=== PATIENT | female | born 1950 | race Caucasian/White ===

== ENCOUNTER 2017-03-17 17:53 | Emergency (ER) | payer SELFPAY ==
[2017-03-17 19:19] LABS: ABSOLUTE BASOPHILS # (AUTO) 0.1 10^3/uL (0.0-0.2); ABSOLUTE EOSINOPHILS # (AUTO) 0.2 10^3/uL (0.0-0.6); ABSOLUTE LYMPHOCYTES (AUTO) 3.1 10^3/uL (0.5-4.7); ABSOLUTE MONOCYTES (AUTO) 0.3 10^3/uL (0.1-1.4); ABSOLUTE NEUT (AUTO) 3.7 10^3/uL (1.7-8.2); BASOPHILS % (AUTO) 0.9 % (0-2); EOSINOPHILS % (AUTO) 2.8 % (0-6); HEMATOCRIT 43.2 % (36.0-47.0); HEMOGLOBIN 15.1 g/dL (12.0-15.5); HGB HCT DIFFERENCE 2.1; LYMPHOCYTES % (AUTO) 41.7 % (13-45); MEAN CORPUSCULAR HEMOGLOBIN 30.5 pg (27.0-33.4); MEAN CORPUSCULAR HGB CONC 34.8 g/dL (32.0-36.0); MEAN CORPUSCULAR VOLUME 88 fl (80-97); MONOCYTES % (AUTO) 4.4 % (3-13); RED BLOOD COUNT 4.94 10^6/uL (3.72-5.28); SEGMENTED NEUTROPHILS % (AUTO) 50.2 % (42-78); WHITE BLOOD COUNT 7.3 10^3/uL (4.0-10.5)
[2017-03-17 19:22] LABS: ALANINE AMINOTRANSFERASE 33 U/L (9-52); ALBUMIN 4.3 g/dL (3.5-5.0); ALKALINE PHOSPHATASE 163 U/L (38-126); ANION GAP 13 (5-19); ASPARTATE AMINO TRANSFERASE 22 U/L (14-36); BILIRUBIN,DIRECT 0.4 mg/dL (0.0-0.4); BILIRUBIN,TOTAL 0.4 mg/dL (0.2-1.3); BLOOD UREA NITROGEN 15 mg/dL (7-20); CALCIUM 9.4 mg/dL (8.4-10.2); CARBON DIOXIDE 27 mmol/L (22-30); CHLORIDE 100 mmol/L (98-107); CREATININE RESULT 0.61 mg/dL (0.52-1.25); GLUCOSE 342 mg/dL (75-110); POTASSIUM 4.3 mmol/L (3.6-5.0); SODIUM 139.5 mmol/L (137-145)
[2017-03-17] MEDS ORDERED: NORMAL SALINE 1000 ML 1,000 ML IV PRN (19:56)
--- NOTE | 2017-03-17 19:56 | ER Document Report ---
ED General - General Chief Complaint: Dizziness Stated Complaint: BLOOD SUGAR PROBLEM Time Seen by Provider: 03/17/17 19:42 Mode of Arrival: Ambulatory Information source: Patient TRAVEL OUTSIDE OF THE [place] IN LAST 30 DAYS: No - HPI Patient complains to provider of: Blood sugar, feeling off balance, increased thirst and urination Onset: Just prior to arrival Onset/Duration: Gradual Quality of pain: No pain Exacerbated by: Denies Relieved by: Denies Similar symptoms previously: No Recently seen / treated by doctor: No Notes: She is a 66-year-old female who presents to the emergency room today via EMS for elevated blood sugar, she states that she is felt as though her equilibrium was off over the last few days, she fell in the bathtub today hitting her head, there was no loss of consciousness, no nausea or vomiting, she does report increased thirst and urination, her sister used her glucometer to take patient' s blood sugar and it was over 400, patient has not seen a doctor since she was about 17 years old - Related Data Allergies/Adverse Reactions: No Known Allergies Allergy (Unverified 03/17/17 18:49) Past Medical History - General Information source: Patient - Social History Smoking Status: Never Smoker Chew tobacco use (# tins/day): No Frequency of alcohol use: None Drug Abuse: None Family History: Reviewed & Not Pertinent Patient has suicidal ideation: No Patient has homicidal ideation: No Renal/ Medical History: Denies: Hx Peritoneal Dialysis Surgical Hx: Negative - Immunizations Hx Diphtheria, Pertussis, Tetanus Vaccination: No Review of Systems - Review of Systems Constitutional: No symptoms reported EENT: No symptoms reported Cardiovascular: Dizziness Respiratory: No symptoms reported Gastrointestinal: No symptoms reported Genitourinary: See HPI Female Genitourinary: No symptoms reported Musculoskeletal: No symptoms reported Skin: No symptoms reported Hematologic/Lymphatic: No symptoms reported Neurological/Psychological: No symptoms reported -: Yes All other systems reviewed and negative Physical Exam - Vital signs Vitals: Temp Resp BP Pulse Ox 98.6 F 22 H 166/94 H 96 03/17/17 18:43 03/17/17 18:43 03/17/17 18:43 03/17/17 18:43 Interpretation: Hypertensive - General General appearance: Appears well, Alert - HEENT Head: Normocephalic, Atraumatic Eyes: Normal Pupils: PERRL - Respiratory Respiratory status: No respiratory distress Chest status: Nontender Breath sounds: Normal Chest palpation: Normal - Cardiovascular Rhythm: Regular Heart sounds: Normal auscultation Murmur: No - Abdominal Inspection: Normal Distension: No distension Bowel sounds: Normal Tenderness: Nontender Organomegaly: No organomegaly - Back Back: Normal, Nontender - Extremities General upper extremity: Normal inspection, Nontender, Normal color, Normal ROM , Normal temperature General lower extremity: Normal inspection, Nontender, Normal color, Normal ROM , Normal temperature, Normal weight bearing. No: Inocencia's sign - Neurological Neuro grossly intact: Yes Cognition: Normal Orientation: AAOx4 Griselda Coma Scale Eye Opening: Spontaneous Griselda Coma Scale Verbal: Oriented Griselda Coma Scale Motor: Obeys Commands Griselda Coma Scale Total: 15 Speech: Normal Motor strength normal: LUE, RUE, LLE, RLE Sensory: Normal - Psychological Associated symptoms: Normal affect, Normal mood - Skin Skin Temperature: Warm Skin Moisture: Dry Skin Color: Normal Course - Re-evaluation Re-evalutation: 03/17/17 19:53 Vision was high blood pressure and high blood sugar, restarted on metformin and Norvasc, and provided with information to follow-up with a primary care provider , advised to return if symptoms worsen, patient acknowledges understanding and agreement with this plan - Vital Signs Vital signs: Temp Pulse Resp BP Pulse Ox 98.6 F 22 H 166/94 H 96 03/17/17 18:43 03/17/17 18:43 03/17/17 18:43 03/17/17 18:43 - Laboratory Result Diagrams: 03/17/17 18:30 03/17/17 18:30 Laboratory results interpreted by me: 03/17/17 18:30 Glucose 342 H Alkaline Phosphatase 163 H Discharge - Discharge Clinical Impression: Hyperglycemia Hypertension Qualifiers: Hypertension type: essential hypertension Qualified Code(s): I10 - Essential ( primary) hypertension Condition: Stable Disposition: HOME, SELF-CARE Instructions: Dizziness ([facility]), Hyperglycemia ([facility]), High Blood Pressure, Requiring Treatment ([facility]), Diabetes ([facility]), Control of Diabetes During Illness ( [facility]) Additional Instructions: Follow up with your primary care provider in one to 2 days. Return to the emergency room immediately if symptoms worsen or any additional concerns. Prescriptions: Amlodipine Besylate [Norvasc 5 mg Tablet] 5 mg PO DAILY #30 tablet Metformin HCl [Glucophage 500 mg Tablet] 500 mg PO BIDACBS #60 tab
[2017-03-17] MEDS ORDERED: DIPH/PERTUSS(ACELL)/TETANUS VAC/PF 0.5 ML SYR (>=10YO) IM ONE (19:57)
[2017-03-17 20:18] VITALS: BP 167/87
== END 2017-03-17 20:54 | disposition home or self-care (01) ==
LOC: ER 17:53
DX: R73.9 Hyperglycemia, unspecified (principal); I10 Essential (primary) hypertension; R42 Dizziness and giddiness
CPT/HCPCS: 99285; 96360; 36415; 85025; 80053; J7030

== ENCOUNTER 2017-04-20 08:51 | Inpatient (IN) | payer MEDICARE ==
--- NOTE | 2017-04-20 09:09 | RADIOLOGY REPORT (SQ) ---
EXAM DESCRIPTION: CT HEAD WITHOUT COMPLETED DATE/TIME: 04/20/2017 8:58 am REASON FOR STUDY: bed 12 stroke alert COMPARISON: None. TECHNIQUE: Axial images acquired through the brain without intravenous contrast. Images reviewed wi th bone, brain and subdural windows. Images stored on PACS. All CT scanners at this facility use dose modulation, iterative reconstruction, and/or weight based d osing when appropriate to reduce radiation dose to as low as reasonably achievable (ALARA). [facility]: Dose Right [facility]: CareDose [facility]: Dose Right [facility]: Teradose 4D [facility]: [employer] RADIATION DOSE: CT Rad equipment meets quality standard of care and radiation dose reduction techniq ues were employed. CTDIvol: 64.6 mGy. DLP: 1163 mGy-cm. mGy. LIMITATIONS: None. FINDINGS: VENTRICLES: Normal size and contour. CEREBRUM: No masses. No hemorrhage. No midline shift. No evidence for acute infarction. Moderate t o marked bilateral patchy areas of bilateral hypodensity in the white matter. Right centrum semioval e old lacunar infarct. CEREBELLUM: No masses. No hemorrhage. No alteration of density. No evidence for acute infarction. EXTRAAXIAL SPACES: No fluid collections. No masses. ORBITS AND GLOBE: No intra- or extraconal masses. Normal contour of globe without masses. CALVARIUM: No fracture. PARANASAL SINUSES: No fluid or mucosal thickening. SOFT TISSUES: No mass or hematoma. OTHER: No other significant finding. IMPRESSION: 1. Fairly pronounced small vessel vasculopathy, likely chronic ischemic disease. No acu te infarct or hemorrhage suggested. Pertinent positive or negative findings of the imaging study reported as a CRITICAL EXAM to GAUDENCIO LEON DO at08:05 on 04/20/2017. Category of Critical Exam: Stroke alert EVIDENCE OF ACUTE STROKE: NO. COMMENT: Quality ID # [id number]: Final reports with documentation of one or more dose reduction techniques (e.g., Automated exposure control, adjustment of the mA and/or kV according to patient size, use of iterative reconstruction technique) TECHNICAL DOCUMENTATION: JOB ID: [id number]- All Rights Reserved
[2017-04-20 09:17] LABS: ABSOLUTE BASOPHILS # (AUTO) 0.1 10^3/uL (0.0-0.2); ABSOLUTE EOSINOPHILS # (AUTO) 0.2 10^3/uL (0.0-0.6); ABSOLUTE LYMPHOCYTES (AUTO) 2.6 10^3/uL (0.5-4.7); ABSOLUTE MONOCYTES (AUTO) 0.3 10^3/uL (0.1-1.4); ABSOLUTE NEUT (AUTO) 4.9 10^3/uL (1.7-8.2); BASOPHILS % (AUTO) 1.2 % (0-2); EOSINOPHILS % (AUTO) 2.6 % (0-6); HEMATOCRIT 41.4 % (36.0-47.0); HEMOGLOBIN 14.5 g/dL (12.0-15.5); HGB HCT DIFFERENCE 2.1; LYMPHOCYTES % (AUTO) 32.5 % (13-45); MEAN CORPUSCULAR HEMOGLOBIN 30.6 pg (27.0-33.4); MEAN CORPUSCULAR HGB CONC 34.9 g/dL (32.0-36.0); MEAN CORPUSCULAR VOLUME 88 fl (80-97); RED BLOOD COUNT 4.73 10^6/uL (3.72-5.28); SEGMENTED NEUTROPHILS % (AUTO) 59.7 % (42-78); WHITE BLOOD COUNT 8.1 10^3/uL (4.0-10.5)
[2017-04-20 09:25] LABS: PARTIAL THROMBOPLASTIN TIME 26.4 SEC (23.5-35.8); PROTHROMBIN TIME 12.5 SEC (11.4-15.4)
--- NOTE | 2017-04-20 09:26 | RADIOLOGY REPORT (SQ) ---
EXAM DESCRIPTION: CHEST SINGLE VIEW COMPLETED DATE/TIME: 04/20/2017 9:06 am REASON FOR STUDY: bed 12 stroke alert COMPARISON: None. NUMBER OF VIEWS: One view. TECHNIQUE: Single frontal radiographic view of the chest acquired. LIMITATIONS: None. FINDINGS: LUNGS AND PLEURA: Low lung volumes. No opacities, masses or pneumothorax. No pleural eff usion. MEDIASTINUM AND HILAR STRUCTURES: No masses. No contour abnormality. HEART AND VASCULAR STRUCTURES: Normal size. No evidence for failure. BONES: No acute findings. HARDWARE: None in the chest. OTHER: No other significant finding. IMPRESSION: LOW LUNG VOLUMES. NO SIGNIFICANT RADIOGRAPHIC FINDING IN THE CHEST. TECHNICAL DOCUMENTATION: JOB ID: [id number] [employer]- All Rights Reserved
--- NOTE | 2017-04-20 09:30 | ER Document Report ---
ED General - General Stated Complaint: POSSIBLE STROKE Time Seen by Provider: 04/20/17 08:58 TRAVEL OUTSIDE OF THE [place] IN LAST 30 DAYS: No - HPI Patient complains to provider of: Possible stroke Notes: Patient coming in for strokelike symptoms. Patient at bedside states that the patient was at home at around 813 started having repetitive speech and expressive aphasia and drooping of her face. Patient otherwise at this time has no complaints patient is speaking normal voice patient otherwise states she feels fine. Patient was recently seen diagnosed with diabetes. Patient denies any past medical history states that she is only on metformin has not established herself with PCP Dr. Smith however has not had the first visit yet. Patient upon my evaluation is in no distress patient has no complaints denies headaches fevers chills nausea vomiting chest pain abdominal pain. - Related Data Allergies/Adverse Reactions: No Known Allergies Allergy (Verified 04/20/17 09:36) Past Medical History - Social History Smoking Status: Unknown if Ever Smoked Family History: Reviewed & Not Pertinent Renal/ Medical History: Denies: Hx Peritoneal Dialysis - Immunizations Hx Diphtheria, Pertussis, Tetanus Vaccination: No Review of Systems - Review of Systems Constitutional: No symptoms reported EENT: No symptoms reported Cardiovascular: No symptoms reported Respiratory: No symptoms reported Gastrointestinal: No symptoms reported Genitourinary: No symptoms reported Female Genitourinary: No symptoms reported Musculoskeletal: No symptoms reported Skin: No symptoms reported Hematologic/Lymphatic: No symptoms reported Neurological/Psychological: Speech impairment, Other - Facial drooping -: Yes All other systems reviewed and negative Physical Exam - Vital signs Vitals: Pulse Resp BP Pulse Ox 83 17 163/88 H 99 04/20/17 08:58 04/20/17 08:58 04/20/17 08:58 04/20/17 08:58 Interpretation: Normal - General General appearance: Appears well, Alert - HEENT Head: Normocephalic, Atraumatic Eyes: Normal Pupils: PERRL - Respiratory Respiratory status: No respiratory distress Chest status: Nontender Breath sounds: Normal Chest palpation: Normal - Cardiovascular Rhythm: Regular Heart sounds: Normal auscultation Murmur: No - Abdominal Inspection: Normal Distension: No distension Bowel sounds: Normal Tenderness: Nontender Organomegaly: No organomegaly - Back Back: Normal, Nontender - Extremities General upper extremity: Normal inspection, Nontender, Normal color, Normal ROM , Normal temperature General lower extremity: Normal inspection, Nontender, Normal color, Normal ROM , Normal temperature, Normal weight bearing. No: Inocencia's sign - Neurological Neuro grossly intact: Yes Cognition: Normal Orientation: AAOx4 Griselda Coma Scale Eye Opening: Spontaneous [place] Coma Scale Verbal: Oriented Griselda Coma Scale Motor: Obeys Commands [place] Coma Scale Total: 15 Speech: Normal Motor strength normal: LUE, RUE, LLE, RLE Sensory: Normal Notes: He can refer to the NIH scale for further evaluation - Psychological Associated symptoms: Normal affect, Normal mood - Skin Skin Temperature: Warm Skin Moisture: Dry Skin Color: Normal Course - Re-evaluation Re-evalutation: 04/20/17 09:22 Patient presented with confusion repeating her words however upon my evaluation this had resolved. NIH score was 0. No unilateral weakness. Concern for underlying TIA. CT of the head does not show evolving pathology or bleeding. Discussed with the patient about getting thrombolytics is that the patient would not be a candidate for thrombolytics at this time. Patient states understanding. 04/20/17 11:10 - Vital Signs Vital signs: Temp Pulse Resp BP Pulse Ox 84 20 165/90 H 97 04/20/17 12:00 04/20/17 13:01 04/20/17 13:01 04/20/17 14:18 - Laboratory Result Diagrams: 04/20/17 09:07 04/20/17 09:07 Laboratory results interpreted by me: 04/20/17 04/20/17 04/20/17 09:07 09:11 10:00 Glucose 202 H POC Glucose 222 H Creatine Kinase 24 L Urine Glucose (UA) >=500 H Urine Nitrite POSITIVE H Ur Leukocyte Esterase TRACE H Urine Ascorbic Acid 20 H Discharge - Discharge Clinical Impression: facial weakness resolved TIA (transient ischemic attack) Qualifiers: Transient cerebral ischemia type: other Qualified Code(s): G45.8 - Other transient cerebral ischemic attacks and related syndromes UTI (urinary tract infection) Qualifiers: Hematuria presence: without hematuria DMII (diabetes mellitus, type 2) Qualifiers: Diabetes mellitus complication status: with unspecified complications Condition: Good Disposition: ADMITTED OBSERVATION Admitting Provider: Hospitalist - [facility] Admitted: Telemetry ED NIH Stroke Scale - NIH Stroke Scale *: 1. NIH scale should be completed with appropriate accompanying assessment tools. *: 2. The NIH should reflect what the patient is capable of doing and should not be coached by the clinician. 1a. Level of Consciousness: 0=Alert;keenly responsive -: 1=Drowsy -: 2=Obtunded -: 3=Coma/unresponsive or reflex to noxious stimuli. 1a. Responses: 0 1b. Orientation Questions: a. What month is it? -: b. How old are you? -: 0=Answers both questions correctly. -: 1=Answers one question correctly or patient is intubated or has orotracheal trauma. -: 2=Answers neither question correctly. 1b. Responses: 0 1c. Response to commands: a. Open and close eyes? -: b. Humane Officer and release hand? -: Credit is given despite weakness. Demonstration of task is permitted. Substitute command if hands cannot be used. -: 0=Performs both tasks correctly -: 1=Performs one task correctly -: 2=Performs neither task correctly 1c. Responses: 0 2. Gaze: Establish eye contact and instruct patient to "Follow my finger" -: 0=Normal -: 1=Partial gaze palsy. Gaze is abnormal in one or both eyes, but where forced deviation or total gaze paresis is not present. -: 2=Forced deviation or total gaze paresis. 2. Responses: 0 3. Visual Reyes: Sees fingers in all four quadrants. -: 0=No visual loss. -: 1=Partial hemianopsia. -: 2=Complete hemianopsia. -: 3=Bilateral hemianopsia (including Cortical blindness) 3. Responses: 0 4. Facial Movement: Instruct patient to: -: a. Show me your teeth -: b. Raise your eyebrows -: c. Close your eyes -: d. Smile -: 0=Normal symmetrical movement -: 1=Minor paralysis (flattened nasolabial fold, asymmetry on smiling). -: 2=Partial paralysis (total or near total paralysis of lower face). -: 3=Complete paralysis of upper and lower face 4. Responses: 0 5. Motor functions (left arm): Alternate sides and extend each arm with palms down (90 degrees if sitting or 45 degrees for supine). -: 0=No drift;limb holds for full 10 seconds. -: 1=Drift; limb holds but drifts down before full 10 seconds, but does not hit bed. -: 2=Some effort against gravity; limb cannot get to or maintain position. -: 3=No effort against gravity; limb falls. -: 4=No movement. -: UN=Amputation, joint fusion, explain in comments. 5. Responses (left arm): 0 5. Motor Functions (right arm): Alternate sides and extend each arm with palms down (90 degrees if sitting or 45 degrees for supine). -: 0=No drift;limb holds for full 10 seconds. -: 1=Drift; limb holds but drifts down before full 10 seconds, but does not hit bed. -: 2=Some effort against gravity; limb cannot get to or maintain position. -: 3=No effort against gravity; limb falls. -: 4=No movement. -: UN=Amputation, joint fusion, explain in comments. 5. Responses (right arm): 0 6. Motor Functions (left leg): With patient lying supine, alternate sides and extend each leg (30 degrees always while supine). -: 0=No drift, leg holds position for full 5 seconds -: 1=Drift; leg falls before full 5 seconds but does not hit bed. -: 2=Some effort against gravity, leg falls to bed but some effort against gravity. -: 3=No effort against gravity, leg falls to bed immediately. -: 4=No movement. -: UN=Amputation, joint fusion; explain in comments. 6. Responses (left leg): 0 6. Motor Functions (right leg): With patient lying supine, alternate sides and extend each leg (30 degrees always while supine). -: 0=No drift, leg holds position for full 5 seconds -: 1=Drift; leg falls before full 5 seconds but does not hit bed. -: 2=Some effort against gravity, leg falls to bed but some effort against gravity. -: 3=No effort against gravity, leg falls to bed immediately. -: 4=No movement. -: UN=Amputation, joint fusion; explain in comments. 6. Responses (right leg): 0 7. Limb Ataxia: With eyes open instruct patient to: -: a. "Touch your finger to your nose". -: b. "Touch your heel to your mejía" -: 0=Absent -: 1=Present in one limb. -: 2=Present in two limbs. -: UN=Amputation or joint fusion; explain in comments. 7. Responses: 0 8. Sensory: Test sensation using pinprick or noxious stimuli. Test as many body parts as possible. -: 0=Normal;no sensory loss -: 1=Mile to moderate sensory loss (patient feels pin prick but is less sharp on affected side). -: 2=Severe or total sensory loss. 8. Responses: 0 9. Best Language: Instruct patient to: -: a. "Describe what you see in this picture." -: b. "Name the items in this picture." -: c. "Read these sentences." -: 0=No aphasia, normal -: 1=Mild to moderate aphasia. -: 2=Severe aphasia -: 3=Mute, global aphasia, no usable speech or auditory comprehension. 9. Responses: 0 10. Articulation, Dysarthia: Instruct patient to: -: "Read these words" or "Repeat these words" -: 0=Normal -: 1=Mild to moderate; patient may slur some words but can be understood without difficulty. -: 2=Severe; patients speech so slurred as to be unintelligible in the absence of dysphasia. -: UN=Intubated or other physical barrier, explain in comments. 10. Responses: 0 11. Extinction or inattention: 0=No abnormality -: 1= Visual, tactile, auditory, spatial, or personal inattention or extinction to bilateral simulation in one or the sensory modalities. -: 2=Profound som-inattention or som-inattention to more than one modality; does not recognize own hand. 11. Responses: 0 Total Score: 0
[2017-04-20 09:32] LABS: ALANINE AMINOTRANSFERASE 33 U/L (9-52); ALBUMIN 4.4 g/dL (3.5-5.0); ALKALINE PHOSPHATASE 98 U/L (38-126); ANION GAP 13 (5-19); ASPARTATE AMINO TRANSFERASE 22 U/L (14-36); BILIRUBIN,DIRECT 0.2 mg/dL (0.0-0.4); BILIRUBIN,TOTAL 0.5 mg/dL (0.2-1.3); BLOOD UREA NITROGEN 14 mg/dL (7-20); CALCIUM 9.7 mg/dL (8.4-10.2); CARBON DIOXIDE 29 mmol/L (22-30); CHLORIDE 100 mmol/L (98-107); GLUCOSE 202 mg/dL (75-110); POTASSIUM 4.4 mmol/L (3.6-5.0); SODIUM 142.3 mmol/L (137-145); TOTAL PROTEIN 7.4 g/dL (6.3-8.2)
[2017-04-20 09:33] LABS: CREATINE KINASE 24 U/L (30-135)
[2017-04-20 09:44] LABS: CREATINE KINASE MB 0.58 ng/mL (<4.55)
[2017-04-20 09:45] LABS: TROPONIN I < 0.012 ng/mL
[2017-04-20 10:25] LABS: APPEARANCE,URINE SLIGHTLY-CLOUDY; BILIRUBIN,URINE NEGATIVE (NEGATIVE); GLUCOSE, URINE >=500 mg/dL (NEGATIVE); KETONES,URINE NEGATIVE (NEGATIVE); LEUKOCYTE ESTERASE,URINE TRACE (NEGATIVE); NITRITE,URINE POSITIVE (NEGATIVE); PROTEIN,URINE NEGATIVE (NEGATIVE); URINE SPECIFIC GRAVITY 1.016; UROBILINOGEN,URINE NEGATIVE mg/dL (<2.0)
[2017-04-20 10:46] LABS: URINE BARBITURATES SCREEN NEGATIVE; URINE METHADONE SCREEN NEGATIVE; URINE OPIATES LOW NEGATIVE; URINE PHENCYCLIDINE SCREEN NEGATIVE
[2017-04-20] MEDS ORDERED: CEFTRIAXONE 1 GM/D5W RTU 1 GM/50 ML RTUPB IV ONE (10:48)
[2017-04-20] MEDS ORDERED: DEXTROSE 50%-WATER 25 GM/50 ML DISP.SYRIN IV PRN ×4 (12:28→12:46)
[2017-04-20] MEDS ORDERED: ACETAMINOPHEN 325 MG TABLET PO PRN (12:28)
[2017-04-20] MEDS ORDERED: MAGNESIUM HYDROXIDE SUSP 30 ML UDCUP PO PRN (12:28)
[2017-04-20] MEDS ORDERED: DOCUSATE SODIUM 100 MG CAPSULE PO PRN (12:28)
[2017-04-20] MEDS ORDERED: DEXTROSE 40% GEL 15 GM TUBE PO PRN ×2 (12:28)
[2017-04-20] MEDS ORDERED: GLUCAGON,HUMAN RECOMB 1 MG INJ SUBCUT PRN (12:28)
[2017-04-20] MEDS ORDERED: NORMAL SALINE 1000 ML 1,000 ML IV PRN (12:28)
[2017-04-20] MEDS ORDERED: DILTIAZEM HCL INJ 25 MG/5 ML VIAL IV ONE (15:20)
--- NOTE | 2017-04-20 15:28 | RADIOLOGY REPORT (SQ) ---
EXAM DESCRIPTION: MRI HEAD WITHOUT COMPLETED DATE/TIME: 04/20/2017 2:05 pm REASON FOR STUDY: r/o cva COMPARISON: 04/20/2017 CT. This exam qualifies as a separate session for this patient's imaging care and occurred approximately 6 hours after the previous session of cross-sectional imaging care. TECHNIQUE: Multiplanar imaging includes non-contrasted T1, T2, FLAIR, and diffusion with ADC map seq uences. Images stored on PACS. LIMITATIONS: None. FINDINGS: ANATOMY: No anomalies. Normal vascular flow voids. Pituitary fossa normal. CSF SPACES: Normal in size and contour. No hemorrhage. CEREBRUM: Marked multifocal FLAIR hyperintensities with patchy bilateral diffuse distribution. Likel y small vessel vasculopathy. Somewhat pronounced for a patient of this age. Likely chronic small ve ssel ischemic change. No evidence of hemorrhage or mass or shift. POSTERIOR FOSSA: No signal alteration. No hemorrhage. No edema, masses or mass effect. Internal rika tory canals, cerebello-pontine angles, mastoids normal. DIFFUSION IMAGING: Minimal punctate restricted diffusion may be present along the left insular cortex . No large territorial infarct, however. Findings may be artifact. ORBITS: No masses. Globes normal. PARANASAL SINUSES: No fluid levels. Mucosa normal. OTHER: No other significant finding. IMPRESSION: 1. Extensive small vessel disease. 2. Left insular cortex relatively focal punctate re stricted diffusion. This may represent a small recent tiny area of MCA distribution infarct or artif act. No definable territorial infarct demonstrated otherwise. EVIDENCE OF ACUTE STROKE: Possibly. LEFT MCA TECHNICAL DOCUMENTATION: JOB ID: [id number] [employer]- All Rights Reserved
[2017-04-20] MEDS: DILTIAZEM HCL/D5W 125 MG/125 ML RTUINJ IV PRN ×2 (15:32→22:01)
[2017-04-20] MEDS ORDERED: DILTIAZEM HCL/D5W 125 MG/125 ML RTUINJ IV PRN (16:29)
[2017-04-20] MEDS ORDERED: ACETAMINOPHEN 650 MG SUPP.RECT PR PRN (16:36)
--- NOTE | 2017-04-20 16:59 | PDOC PROGRESS REPORT ---
Subjective Progress Note for:: 04/20/17 Subjective:: I was called by nurse practitioner Ruth with concerns that the patient had developed rapid atrial fibrillation down in the emergency room. The patient was admitted for concerns of TIA and urinary tract infection. She had a CT scan of the head that was negative but an MRI that suggests possible left MCA. Apparently the patient was found by her family perseverating and saying the phrase "I am okay" "I am all right" repetitively. EMS was called and the patient was brought in. The patient has had intermittent episodes of lucency at the bedside. Apparently at 3 PM she had what seemed to be a perfectly normal conversation with her by phone, as witnessed by her nurse. Shortly thereafter she went into rapid atrial fibrillation with a heart rate in the 160s. She was given a 20 mg bolus of Cardizem and started on a drip. The patient had also received a 1 L bolus at some point in the ED. Apparently the patient is new to the area over the last couple of weeks. Her family had not seen her in years. She has not been treated by any physician up until last week when her Medicare came through. At the bedside the patient is able to tell me that she is in [place]. When asked other orienting questions or any other questioning, she responds, "I'm alright." Reason For Visit: TIA/UTI Physical Exam Vital Signs: Temp Pulse Resp BP Pulse Ox 98 F 92 27 H 169/122 H 95 04/20/17 15:00 04/20/17 15:00 04/20/17 15:12 04/20/17 15:13 04/20/17 15:13 GENERAL: This is a well-developed well-nourished appearing white female resting in bed currently appearing restless. HEENT: Normocephalic atraumatic. Trachea is midline sclera are anicteric. HEART: [Irregularly irregular. Tachycardic at a rate of 130 on the monitor. Patient appears to be in atrial fibrillation. No murmurs, rubs or gallops.] LUNGS: [Clear to auscultation anteriorly bilaterally with equal rise and fall of the chest.] ABDOMEN: [Soft, nontender, nondistended with normoactive bowel sounds] EXTREMETIES: [No clubbing, cyanosis or edema. 2+ peripheral pulses bilaterally. ] NEURO: [Awake and alert. The patient is oriented to what city she is in. She perseverates. Every question I ask her outside of what city she is in, she responds "I am all right". Patient does not cooperate with commands completely. She responds "I am all right"] Results Laboratory Results: 04/20/17 14:55 Troponin I < 0.012 Impressions: Chest X-Ray 04/20/17 08:52 IMPRESSION: LOW LUNG VOLUMES. NO SIGNIFICANT RADIOGRAPHIC FINDING IN THE CHEST. Head CT 04/20/17 08:52 IMPRESSION: 1. Fairly pronounced small vessel vasculopathy, likely chronic ischemic disease. No acute infarct or hemorrhage suggested. Pertinent positive or negative findings of the imaging study reported as a CRITICAL EXAM to GAUDENCIO MALONE DO at08:05 on 04/20/2017. Category of Critical Exam: Stroke alert EVIDENCE OF ACUTE STROKE: NO. Head MRI 04/20/17 12:38 IMPRESSION: 1. Extensive small vessel disease. 2. Left insular cortex relatively focal punctate restricted diffusion. This may represent a small recent tiny area of MCA distribution infarct or artifact. No definable territorial infarct demonstrated otherwise. EVIDENCE OF ACUTE STROKE: Possibly. LEFT MCA Assessment & Plan - Diagnosis (1) Left acute arterial ischemic stroke, MCA (middle cerebral artery) Is this a current diagnosis for this admission?: Yes Plan: Left MCA stroke. Continue with statin. Consult speech. Check Echo. Check carotid doppler. Patient is currently in A. fib and RVR. It may be that she had transient arrhythmia at home that is the cause of her stroke. Permissive htn. (2) DMII (diabetes mellitus, type 2) Qualifiers: Diabetes mellitus complication status: with unspecified complications Is this a current diagnosis for this admission?: Yes Plan: Sliding scale insulin. Check hemoglobin A1c. (3) UTI (urinary tract infection) Qualifiers: Hematuria presence: without hematuria Is this a current diagnosis for this admission?: Yes Plan: Continue Rocephin daily. Await cultures. (4) Atrial fibrillation with RVR Is this a current diagnosis for this admission?: Yes Plan: Status post 20 mg Cardizem bolus and now on drip. Will invite cardiology. The patient's A. fib may have been transient at home. Or caused by her underlying urinary tract infection. The concern is that this could be linked to the patient's stroke. Check echocardiogram - Time Time Spent with patient: 35 or more minutes
[2017-04-20] MEDS ORDERED: INFLUENZA ADLT QUAD (36MOS+) 2017-18 VAC 0.5 ML SYR IM PRN (17:02)
[2017-04-20] MEDS: NORMAL SALINE 1000 ML 1,000 ML IV PRN ×2 (18:18→23:50)
--- NOTE | 2017-04-20 18:32 | RADIOLOGY REPORT (SQ) ---
EXAM DESCRIPTION: CHEST SINGLE VIEW COMPLETED DATE/TIME: 04/20/2017 6:11 pm REASON FOR STUDY: r/o PAIRER SUBSTANDARD COMPARISON: 04/20/2017 EXAM PARAMETERS: NUMBER OF VIEWS: One view. TECHNIQUE: Single frontal radiographic view of the chest acquired. RADIATION DOSE: NA LIMITATIONS: None. FINDINGS: LUNGS AND PLEURA: Low lung volumes result in bronchovascular crowding. No focal consolida tion, pleural effusion, or pneumothorax evident. MEDIASTINUM AND HILAR STRUCTURES: No masses. Contour normal. HEART AND VASCULAR STRUCTURES: Heart normal in size. Normal vasculature. BONES: No acute findings. HARDWARE: None in the chest. OTHER: No other significant finding. IMPRESSION: Low lung volumes. No evidence of acute cardiopulmonary abnormality. TECHNICAL DOCUMENTATION: JOB ID: [id number] [employer]- All Rights Reserved
--- NOTE | 2017-04-20 19:23 | Progress Note ---
Provider Note Provider Note: Discussed case with neurology pet supplies salesperson at [facility] AT [facility] who agree with the initiation of anticoagulation tomorrow.
[2017-04-20] MEDS ORDERED: ATORVASTATIN CALCIUM 20 MG TABLET PO SCH (22:00)
[2017-04-20] MEDS: HEPARIN SOD (PORCINE) 5,000 UNIT/ML 1 ML SYRINGE SUBCUT SCH (22:01)
[2017-04-20] MEDS: FAMOTIDINE 20 MG TABLET PO SCH (22:02)
[2017-04-20] MEDS ORDERED: NORMAL SALINE 1000 ML 1,000 ML IV ONE (22:45)
--- NOTE | 2017-04-20 23:07 | EKG REPORT ---
SEVERITY:- ABNORMAL ECG - ATRIAL FIBRILLATION INFERIOR INFARCT, AGE INDETERMINATE ANTERIOR INFARCT, OLD : Confirmed by: Justine Peñaloza 20-Apr-2017 23:07:21
--- NOTE | 2017-04-20 23:08 | EKG REPORT ---
SEVERITY:- ABNORMAL ECG - SINUS RHYTHM LEFT VENTRICULAR HYPERTROPHY INFERIOR INFARCT, AGE INDETERMINATE EXTENSIVE ANTERIOR INFARCT, AGE INDETERMINATE : Confirmed by: Justine Peñaloza 20-Apr-2017 23:07:35
[2017-04-20] MEDS: INSULIN REG, HUMAN 100 UNIT/ML 3 ML VIAL (PYX) SUBCUT PRN (23:46)
[2017-04-21] MEDS: INSULIN REG, HUMAN 100 UNIT/ML 3 ML VIAL (PYX) SUBCUT PRN (05:34)
[2017-04-21 06:38] LABS: HEMOGLOBIN 15.1 g/dL (12.0-15.5); HGB HCT DIFFERENCE 2.3; MEAN CORPUSCULAR HEMOGLOBIN 30.4 pg (27.0-33.4); MEAN CORPUSCULAR HGB CONC 35.1 g/dL (32.0-36.0); MEAN CORPUSCULAR VOLUME 87 fl (80-97); RED BLOOD COUNT 4.96 10^6/uL (3.72-5.28); WHITE BLOOD COUNT 12.8 10^3/uL (4.0-10.5)
[2017-04-21] MEDS: NORMAL SALINE 1000 ML 1,000 ML IV PRN ×2 (06:39→21:17)
[2017-04-21 06:53] LABS: ANION GAP 14 (5-19); BLOOD UREA NITROGEN 7 mg/dL (7-20); CALCIUM 8.6 mg/dL (8.4-10.2); CARBON DIOXIDE 20 mmol/L (22-30); CHLORIDE 101 mmol/L (98-107); CHOLESTEROL 315.27 mg/dL (0-200); CREATININE RESULT 0.52 mg/dL (0.52-1.25); Direct HDL 40 mg/dL (>40); GLUCOSE 194 mg/dL (75-110); SODIUM 135.1 mmol/L (137-145); TRIGLYCERIDES 326 mg/dL (<150)
[2017-04-21 07:04] LABS: DIRECT LDL 212 mg/dL (<100)
[2017-04-21 07:11] LABS: VLDL CHOLESTEROL 65.2 mg/dL (10-31)
[2017-04-21] MEDS ORDERED: ASPIRIN 81 MG TABLET, ENT COATED PO SCH (10:00)
[2017-04-21] MEDS ORDERED: CEFTRIAXONE 1 GM/D5W RTU 1 GM/50 ML RTUPB IV ONE (10:00)
[2017-04-21] MEDS ORDERED: AMLODIPINE BESYLATE 5 MG TABLET PO SCH (10:00)
[2017-04-21] MEDS ORDERED: ENOXAPARIN SODIUM INJ 30 MG/0.3 ML DISP.SYRIN SUBCUT SCH (10:00)
[2017-04-21] MEDS: FAMOTIDINE 20 MG TABLET PO SCH (10:02)
[2017-04-21] MEDS: ASPIRIN 300 MG SUPP, RECTAL PR SCH (10:10)
[2017-04-21] MEDS: HEPARIN SOD (PORCINE) 5,000 UNIT/ML 1 ML SYRINGE SUBCUT SCH (10:11)
[2017-04-21] MEDS ORDERED: PHARMACY COMMUNICATION ORDER MC NR (10:30)
[2017-04-21] MEDS ORDERED: DEXTROSE 40% GEL 15 GM TUBE NG PRN ×2 (11:00)
[2017-04-21] MEDS ORDERED: MAGNESIUM HYDROXIDE SUSP 30 ML UDCUP NG PRN (11:00)
--- NOTE | 2017-04-21 11:44 | RADIOLOGY REPORT (SQ) ---
EXAM DESCRIPTION: CT HEAD WITHOUT COMPLETED DATE/TIME: 04/21/2017 11:33 am REASON FOR STUDY: r/o bleed A40.9 STREPTOCOCCAL SEPSIS, UNSPECIFIED I48.1 PERSISTENT ATRIAL FIBRIL LATION COMPARISON: CT brain 04/20/2017 MRI brain 04/20/2017 TECHNIQUE: Axial images acquired through the brain without intravenous contrast. Images reviewed wi th bone, brain and subdural windows. Images stored on PACS. All CT scanners at this facility use dose modulation, iterative reconstruction, and/or weight based d osing when appropriate to reduce radiation dose to as low as reasonably achievable (ALARA). [facility]: Dose Right [facility]: CareDose [facility]: Dose Right [facility]: Teradose 4D [facility]: [employer] RADIATION DOSE: CT Rad equipment meets quality standard of care and radiation dose reduction techniq ues were employed. CTDIvol: 64.6 mGy. DLP: 1292 mGy-cm. mGy. LIMITATIONS: Motion artifact FINDINGS: VENTRICLES: Normal size and contour. CEREBRUM: Extensive low attenuation throughout the hemispheric white matter with multiple lacunar inf arcts in the deep periventricular white matter, bilateral basal ganglia, right and left thalamus, and right and left brainstem. No acute intracranial hemorrhage. The tiny punctate focus of positive dif fusion signal in the insular cortex left frontal lobe seen on MRI yesterday is not apparent by CT. CEREBELLUM: No masses. No hemorrhage. No alteration of density. No evidence for acute infarction. EXTRAAXIAL SPACES: No fluid collections. No masses. ORBITS AND GLOBE: No intra- or extraconal masses. Normal contour of globe without masses. CALVARIUM: No fracture. PARANASAL SINUSES: No fluid or mucosal thickening. SOFT TISSUES: No mass or hematoma. OTHER: No other significant finding. IMPRESSION: Extensive small vessel disease. No acute hemorrhage. Tiny focus of acute ischemia seen on MRI 04/20/2017 diffusion-weighted images is not apparent by CT EVIDENCE OF ACUTE STROKE: NO. COMMENT: Quality ID # 436: Final reports with documentation of one or more dose reduction techniques (e.g., Automated exposure control, adjustment of the mA and/or kV according to patient size, use of iterative reconstruction technique) TECHNICAL DOCUMENTATION: JOB ID: [id number] [employer]- All Rights Reserved
--- NOTE | 2017-04-21 11:46 | RADIOLOGY REPORT (SQ) ---
EXAM DESCRIPTION: CAROTID DOPPLER COMPLETED DATE/TIME: 04/21/2017 10:54 am REASON FOR STUDY: cva r/o A40.9 STREPTOCOCCAL SEPSIS, UNSPECIFIED I48.1 PERSISTENT ATRIAL FIBRILL ATION COMPARISON: None. TECHNIQUE: Grayscale ultrasound, Doppler velocity and spectra, and color Doppler images acquired of the extra-cranial carotid and vertebral arteries. Images stored on PACS. LIMITATIONS: None. FINDINGS: RIGHT CAROTID CCA Velocities: Within normal limits. ICA Velocities Peak systolic 0.45 m/s. End diastolic 0.13 m/s. Proximal ICA/CCA peak systolic ratio 0.9. Calcific plaque at the right carotid bifurcation. Distal to the shadowing plaque, velocities suggest against flow significant stenosis LEFT CAROTID CCA Velocities: Within normal limits. ICA Velocities Peak systolic 0.44 m/s. End diastolic 0.15 m/s. Proximal ICA/CCA peak systolic ratio 0.7. Calcific plaque at the left carotid bifurcation. Distal to the shadowing plaque, velocities suggest against flow significant stenosis VERTEBRAL ARTERIES: Antegrade flow. Normal waveforms. SUBCLAVIAN ARTERIES: Not evaluated OTHER: No other significant finding. IMPRESSION: Atherosclerotic change at the carotid bifurcations bilaterally. Velocities suggest agai nst flow significant proximal ICA stenosis bilaterally COMMENT: Quality ID #[id number]: Velocity criteria are extrapolated from the diameter data as defined by t he Society of Radiologists in Ultrasound Consensus Conference. Radiology 2003: 229; 340-346. TECHNICAL DOCUMENTATION: JOB ID: [id number] [employer]- All Rights Reserved
[2017-04-21] MEDS ORDERED: DILTIAZEM HCL 30 MG TABLET PO ONE (12:00)
--- NOTE | 2017-04-21 12:36 | RADIOLOGY REPORT (SQ) ---
EXAM DESCRIPTION: CTA HEAD; CTA NECK COMPLETED DATE/TIME: 04/21/2017 11:55 am REASON FOR STUDY: r/o bleed, AMS; r/o bleed,AMS A40.9 STREPTOCOCCAL SEPSIS, UNSPECIFIED I48.1 PERS ISTENT ATRIAL FIBRILLATION COMPARISON: MRI brain 04/20/2017 CT brain 04/20/2017, 04/21/2017 Bilateral carotid Doppler 04/21/2017 TECHNIQUE: CT angio of the neck and brain, [place] performed with IV contrast. Source and MIP images are saved and reviewed on PACS. Advanced 3D imaging as volume-rendering, MIPs, SSD performed? yes additional maximum intensity projec vance images were generated on an independent workstation, saved to pac's All CT scanners at this facility use dose modulation, iterative reconstruction, and/or weight based d osing when appropriate to reduce radiation dose to as low as reasonably achievable (ALARA). [facility]: Dose Right [facility]: CareDose [facility]: Dose Right [facility]: Teradose 4D [facility]: [employer] CONTRAST TYPE AND DOSE: 70 mL Isovue 370- low osmolar. RENAL FUNCTION: Creatinine 0.52 LIMITATIONS: None. FINDINGS: Thoracic aorta and origin of of the great vessels are unremarkable. The right brachiocephalic artery, cervical common carotid artery, carotid bifurcation and cervical in ternal carotid artery are all unremarkable. The left common carotid artery, left carotid bifurcation, left cervical internal carotid artery are a ll unremarkable. Codominant vertebral arteries are present without stenosis or dissection. Neck soft tissue imaging demonstrates no bulky adenopathy. Airway is patent. Incidental finding of a 1.8 cm thyroid cyst, degenerative disc changes in the cervical spine. Lung apices are clear. Para nasal sinuses, orbits unremarkable. [place]: The anterior, middle, posterior cerebral arteries are all patent. No evidence of a neurysm or focal stenosis. POSTERIOR CIRCULATION: The distal vertebral arteries are patent as is the basilar artery. No aneurysm . BRAIN: No enhancing masses. Extensive white matter disease in the field of view with an old right fr ontal deep periventricular white matter infarct extending into the basal ganglia. Please note that t he small focus of positive diffusion seen on yesterday's brain MRI is not apparent by CT. BONES: Intact as visualized. SINUSES: No fluid or mucosal thickening. OTHER: No other significant finding. IMPRESSION: No CT angio evidence of flow significant carotid bifurcation stenosis, vertebral artery or carotid artery dissection in the neck. No [place] stenosis, vascular malformation, or aneurysm Extensive intracranial white matter chronic small vessel disease with old right deep periventricular white matter infarct extending into the basal ganglia TECHNICAL DOCUMENTATION: JOB ID: [id number] Quality ID # [id number]: Final reports with documentation of one or more dose reduction techniques (e.g., Au tomated exposure control, adjustment of the mA and/or kV according to patient size, use of iterative reconstruction technique) 2010 [employer]- All Rights Reserved
--- NOTE | 2017-04-21 12:36 | RADIOLOGY REPORT (SQ) ---
EXAM DESCRIPTION: CTA HEAD; CTA NECK COMPLETED DATE/TIME: 04/21/2017 11:55 am REASON FOR STUDY: r/o bleed, AMS; r/o bleed,AMS A40.9 STREPTOCOCCAL SEPSIS, UNSPECIFIED I48.1 PERS ISTENT ATRIAL FIBRILLATION COMPARISON: MRI brain 04/20/2017 CT brain 04/20/2017, 04/21/2017 Bilateral carotid Doppler 04/21/2017 TECHNIQUE: CT angio of the neck and brain, [place] performed with IV contrast. Source and MIP images are saved and reviewed on PACS. Advanced 3D imaging as volume-rendering, MIPs, SSD performed? yes additional maximum intensity projec vance images were generated on an independent workstation, saved to pac's All CT scanners at this facility use dose modulation, iterative reconstruction, and/or weight based d osing when appropriate to reduce radiation dose to as low as reasonably achievable (ALARA). [facility]: Dose Right [facility]: CareDose [facility]: Dose Right [facility]: Teradose 4D [facility]: [employer] CONTRAST TYPE AND DOSE: 70 mL Isovue 370- low osmolar. RENAL FUNCTION: Creatinine 0.52 LIMITATIONS: None. FINDINGS: Thoracic aorta and origin of of the great vessels are unremarkable. The right brachiocephalic artery, cervical common carotid artery, carotid bifurcation and cervical in ternal carotid artery are all unremarkable. The left common carotid artery, left carotid bifurcation, left cervical internal carotid artery are a ll unremarkable. Codominant vertebral arteries are present without stenosis or dissection. Neck soft tissue imaging demonstrates no bulky adenopathy. Airway is patent. Incidental finding of a 1.8 cm thyroid cyst, degenerative disc changes in the cervical spine. Lung apices are clear. Para nasal sinuses, orbits unremarkable. [place]: The anterior, middle, posterior cerebral arteries are all patent. No evidence of a neurysm or focal stenosis. POSTERIOR CIRCULATION: The distal vertebral arteries are patent as is the basilar artery. No aneurysm . BRAIN: No enhancing masses. Extensive white matter disease in the field of view with an old right fr ontal deep periventricular white matter infarct extending into the basal ganglia. Please note that t he small focus of positive diffusion seen on yesterday's brain MRI is not apparent by CT. BONES: Intact as visualized. SINUSES: No fluid or mucosal thickening. OTHER: No other significant finding. IMPRESSION: No CT angio evidence of flow significant carotid bifurcation stenosis, vertebral artery or carotid artery dissection in the neck. No [place] stenosis, vascular malformation, or aneurysm Extensive intracranial white matter chronic small vessel disease with old right deep periventricular white matter infarct extending into the basal ganglia TECHNICAL DOCUMENTATION: JOB ID: [id number] Quality ID # [id number]: Final reports with documentation of one or more dose reduction techniques (e.g., Au tomated exposure control, adjustment of the mA and/or kV according to patient size, use of iterative reconstruction technique) 2010 [employer] All Rights Reserved
--- NOTE | 2017-04-21 12:40 | RADIOLOGY REPORT (SQ) ---
EXAM DESCRIPTION: KUB/ABDOMEN (SINGLE VIEW) COMPLETED DATE/TIME: 04/21/2017 12:27 pm REASON FOR STUDY: Check Placement of NG Tube A40.9 STREPTOCOCCAL SEPSIS, UNSPECIFIED I48.1 PERSIST ENT ATRIAL FIBRILLATION R01.1 CARDIAC MURMUR, UNSPECIFIED COMPARISON: Chest films 04/20/2017 NUMBER OF VIEWS: One view. TECHNIQUE: Supine radiographic image of the abdomen acquired for nasogastric tube placement. LIMITATIONS: Film for nasogastric tube placement centered over the left upper quadrant FINDINGS: AP portable chest film is submitted for nasogastric tube placement. Lung apices are cropp ed from the field of view. A nasogastric tube is present with the tip and side port in the stomach. Upper abdominal bowel gas pattern unremarkable. Contrast in renal collecting systems post CT 8 witho ut gross evidence of hydronephrosis. Visualized lungs are clear. IMPRESSION: Nasogastric tube tip and side port in the stomach TECHNICAL DOCUMENTATION: JOB ID: [id number] [employer] [facility]- All Rights Reserved
[2017-04-21] MEDS ORDERED: FUROSEMIDE INJ/PF 20 MG/2 ML SDV IV ONE ×2 (13:30)
[2017-04-21] MEDS ORDERED: SOTALOL HCL 80 MG TABLET PO ONE (13:30)
--- NOTE | 2017-04-21 14:39 | RADIOLOGY REPORT (SQ) ---
EXAM DESCRIPTION: MRI HEAD COMBO COMPLETED DATE/TIME: 04/21/2017 2:21 pm REASON FOR STUDY: acute change A40.9 STREPTOCOCCAL SEPSIS, UNSPECIFIED I48.1 PERSISTENT ATRIAL FIB RILLATION R01.1 CARDIAC MURMUR, UNSPECIFIED COMPARISON: MRI brain 04/20/2017 CT brain 04/20/2017, 04/21/2017 CT angio head and neck 04/21/2017 TECHNIQUE: Multiplanar imaging includes noncontrasted T1, T2, FLAIR, diffusion with ADC map and post gadolinium contrast T1 sequences. Images stored on PACS. CONTRAST TYPE AND DOSE: 15 mL Multihance. RENAL FUNCTION: GFR > 60. LIMITATIONS: Motion artifact on the post contrasted sequences FINDINGS: ANATOMY: No congenital anomalies. Normal vascular flow voids. Pituitary fossa normal. CSF SPACES: Normal in size and contour. No hemorrhage. CEREBRUM: Since the MRI on 04/20/2017, patient has developed acute ischemic change in the left middle cerebral artery distribution over the left frontal perisylvian cortex and subcortical white matter. Small acute infarcts along the insular cortex are increased in size and number compared to 7. Elsewhere, there is extensive bifrontal and biparietal small vessel ischemic change throughout the wh ite matter, chronic in appearance. Old bilateral lacunar infarcts in the basal ganglia and thalami. No acute hemorrhage. No significant mass effect or midline shift. No abnormal brain parenchymal con trast enhancement. POSTERIOR FOSSA: No signal alteration. No hemorrhage. No edema, masses, or mass effect. Internal rika tory canals, cerebellopontine angles, mastoids normal. No enhancing lesions. No abnormal enhancement post contrast. DIFFUSION IMAGING: Negative for acute or subacute infarction. ORBITS: No masses. Globes normal. PARANASAL SINUSES: No fluid levels. Mucosa normal. OTHER: No other significant finding. IMPRESSION: Since the prior MRI 04/20/2017, patient has developed acute ischemic change in the left MCA distribution of the left frontal perisylvian cortex and subcortical white matter, and insular cor vanessa. No acute superimposed hemorrhage. No significant local mass effect. Stable extensive small vessel chronic white matter disease elsewhere in the hemispheres EVIDENCE OF ACUTE STROKE: NO. TECHNICAL DOCUMENTATION: JOB ID: [id number] 1974 [employer]- All Rights Reserved
--- NOTE | 2017-04-21 16:02 | PDOC H&P ---
History of Present Illness Admission Date/PCP: 04/20/17 11:18 History of Present Illness: NALLELY ALLEN is a 66 year old female Patient was admitted to the ER with acute onset altered mental status unsure exactly the events that led up to the ER got conflicting reports. EMS witnessed TIA-like symptoms. According to the ER nurse patient was back to her baseline however when I came to see the patient during admission she did not seem appropriate like someone who may have had a stroke was going to bring her in the rule out CVA. Prior to patient being transported to the floor she had A. fib with RVR rate 160s. I was called back down to the ER to assess patient. She was altered, slurred speech, having expressive aphasia able to answer questions appropriately however someone that appears to be having a stroke. CT scan was negative for acute bleed. Patient was ordered an MRI she attained that prior to going to the floor which did show aLeft insular cortex relatively focal punctuate regions reactive diffusion may represent a recent tiny area MCA distribution infarct. Possible left MCA suspected. A. fib patient was started on a Cardizem drip with bolus of 125 titrated up to keep blood pressure greater than 140 systolic. Patient also was found to be febrile after having A. fib with RVR temp was 101.2 she did have some emesis in the ER. Patient was transported to ICU for close monitoring. Dr. Dodson was aware and came to see the patient with me. Initially patient's sister was in the room during my first initial visit to the ER. States she has not seen her sister in several years prior to just a few weeks ago. Unsure of her past medical history. No other family present patient is not able to give a past medical history, social history. Family history was positive for CVA mother and diabetes and cancer of the bones father. Otherwise sister is unaware of patient receiving any ongoing medical evaluation up until just a few weeks. Past Medical History Past Medical History: Unable to obtain due to patient's mental status Cardiac Medical History: Reports: Hypertension Endocrine Medical History: Reports: Diabetes Mellitus Type 2 Social History Smoking Status: Never Smoker Family History Family History: CVA, DM, Hyperlipidemia, Hypertension, Malignancy Parental Family History Reviewed: Yes Children Family History Reviewed: No Sibling(s) Family History Reviewed.: No Medication/Allergy Home Medications: Amlodipine Besylate [Norvasc 5 mg Tablet] 5 mg PO DAILY #30 tablet 03/17/17 Metformin HCl [Glucophage 500 mg Tablet] 500 mg PO BIDACBS #60 tab 03/17/17 Allergies/Adverse Reactions: No Known Allergies Allergy (Verified 04/20/17 09:36) Review of Systems ROS unobtainable: Due to mental status Physical Exam Vital Signs: Temp Pulse Resp BP Pulse Ox 83 19 164/89 H 99 04/20/17 08:58 04/20/17 11:01 04/20/17 11:01 04/20/17 11:01 General appearance: PRESENT: disheveled, mild distress, obese. ABSENT: cooperative Head exam: PRESENT: atraumatic Eye exam: PRESENT: conjunctiva pink, EOMI, PERRLA. ABSENT: scleral icterus Ear exam: PRESENT: normal external ear exam Mouth exam: PRESENT: dry mucosa Teeth exam: PRESENT: dental caries Respiratory exam: PRESENT: clear to auscultation judi Cardiovascular exam: PRESENT: irregular rhythm, tachycardia Pulses: PRESENT: normal dorsalis pedis pul Vascular exam: PRESENT: normal capillary refill GI/Abdominal exam: PRESENT: normal bowel sounds, soft. ABSENT: distended, guarding, mass, organolmegaly, rebound, tenderness Rectal exam: PRESENT: deferred Gentrourinary exam: PRESENT: indwelling catheter Neurological exam: PRESENT: alert, altered, awake, oriented to person, aphasic. ABSENT: oriented to place, oriented to time, oriented to situation Psychiatric exam: PRESENT: unusual affect Skin exam: PRESENT: dry, intact, warm. ABSENT: cyanosis, rash Results EKG Comments: A. fib with RVR rate 160 Impressions: Chest X-Ray 04/20/17 08:52 IMPRESSION: LOW LUNG VOLUMES. NO SIGNIFICANT RADIOGRAPHIC FINDING IN THE CHEST. Head CT 04/20/17 08:52 IMPRESSION: 1. Fairly pronounced small vessel vasculopathy, likely chronic ischemic disease. No acute infarct or hemorrhage suggested. Pertinent positive or negative findings of the imaging study reported as a CRITICAL EXAM to GAUDENCIO MALONE DO at08:05 on 04/20/2017. Category of Critical Exam: Stroke alert EVIDENCE OF ACUTE STROKE: NO. Status: Image reviewed by me Assessment & Plan - Diagnosis (1) Atrial fibrillation with RVR Is this a current diagnosis for this admission?: Yes Plan: Patient was started on Cardizem drip titrate to keep systolic blood pressure greater than 140 150s (2) Left acute arterial ischemic stroke, MCA (middle cerebral artery) Is this a current diagnosis for this admission?: Yes Plan: Admit patient to ICU for acute MCA CVA and new onset A. fib with RVR rate 140. Cardizem drip initiated in the ER. Continue Cardizem drip in ICU. Start Cardizem drip titrate to keep systolic blood pressure greater than 140 due to an acute MCA left-sided CVA. Patient had a sudden hypotensive blood pressure 118 systolic in the ER which responded well to IV fluid bolus 2 L. Rate at 100 cc an hour normal saline. Monitor for further signs and altered mental status changes may need to obtain a repeat head CT without contrast rule out cerebral hemorrhage. Obtain carotids, echo, MRA protocol (3) UTI (urinary tract infection) Qualifiers: Urinary tract infection type: acute cystitis Hematuria presence: without hematuria Qualified Code(s): N30.00 - Acute cystitis without hematuria Is this a current diagnosis for this admission?: Yes Plan: Initiate Rocephin monitor cultures start Yepez adequately hydrate (4) Fever Qualifiers: Fever type: unspecified Qualified Code(s): R50.9 - Fever, unspecified Is this a current diagnosis for this admission?: Yes Plan: Fever: Blood cultures, urine cultures, insert Yepez, strict I's and O's start ceftriaxone patient has a known UTI, obtain chest x-ray rule out pneumonia due to vomiting. Hold anticoagulants for now: Subcu heparin for DVT prophylaxis, aspirin suppository for CVA protocol. In the a.m. sepsis workup her labs in a.m. (5) Nausea & vomiting Qualifiers: Vomiting type: bilious vomiting Qualified Code(s): R11.14 - Bilious vomiting Is this a current diagnosis for this admission?: Yes Plan: Given anti-medics as needed (6) DMII (diabetes mellitus, type 2) Qualifiers: Diabetes mellitus complication status: with unspecified complications Diabetes mellitus mcc insulin use: without mcc use Qualified Code( s): E11.8 - Type 2 diabetes mellitus with unspecified complications Is this a current diagnosis for this admission?: Yes Plan: Accu-Cheks with sliding scale insulin before meals at bedtime
--- NOTE | 2017-04-21 16:35 | PDOC PROGRESS REPORT ---
Subjective Progress Note for:: 04/21/17 Subjective:: The patient was admitted for slurred speech and altered mental status changes and urinary tract infection. She had a CT scan of the head that was negative but an MRI that suggests possible left MCA. The patient has had intermittent episodes of being lucid. Patient went into rapid atrial fibrillation with a heart rate in the 160s currently still in the ER. She was given a 20 mg bolus of Cardizem and started on a drip. Prior to her her recent move to this area a few weeks ago, patient's states that they have not received any healthcare up until last few weeks. The patient family had not seen her in years. Spoke with at bedside today who came in per my request. Up until this point no family other than her sister who did not know any of her past medical history or present briefly in the ER. Patient had a multiple sudden changes in her condition family was notified but no family member was present until I requested that they come have a family meeting with me today face to face so they can be updated on her condition. Patient not able to make any decisions on her own at this point or in my medical opinion was she ever able to make any decisions. Patient's states she is to be a full code. Reason For Visit: Acute CVA embolic nonhemorrhagic Physical Exam Vital Signs: Temp Pulse Resp BP Pulse Ox 100.4 F 84 22 H 157/94 H 95 04/21/17 07:42 04/21/17 12:00 04/21/17 14:42 04/21/17 14:42 04/21/17 14:42 Intake & Output 04/20/17 04/21/17 04/22/17 06:59 06:59 06:59 Intake Total 2833 Output Total 2475 1050 Balance 358 -1050 Weight 81 kg General appearance: PRESENT: no acute distress, obese Mouth exam: PRESENT: dry mucosa Rectal exam: PRESENT: deferred Gentrourinary exam: ABSENT: ecchymosis, erythema, lacerations, lesions, scrotal swelling, testicular tenderness, urethral discharge, indwelling catheter, other Extremities exam: PRESENT: pedal edema, +1 edema. ABSENT: full ROM - Right- sided weakness more profound today Musculoskeletal exam: PRESENT: deformity. ABSENT: ambulatory, full ROM Neurological exam: PRESENT: altered, aphasic. ABSENT: oriented to time, oriented to situation Psychiatric exam: ABSENT: appropriate affect Focused psych exam: PRESENT: pressured speech Results Laboratory Results: 04/21/17 05:40 04/21/17 05:40 04/21/17 04/21/17 05:40 05:40 WBC 12.8 H RBC 4.96 Hgb 15.1 Hct 43.0 MCV 87 MCH 30.4 MCHC 35.1 RDW 13.0 Plt Count 321 Sodium 135.1 L Potassium 4.0 Chloride 101 Carbon Dioxide 20 L Anion Gap 14 BUN 7 Creatinine 0.52 Est GFR ( Amer) > 60 Est GFR (Non-Af Amer) > 60 Glucose 194 H Calcium 8.6 Triglycerides 326 H Cholesterol 315.27 H LDL Cholesterol Direct 212 H VLDL Cholesterol 65.2 H HDL Cholesterol 40 04/20/17 04/20/17 04/21/17 14:55 20:45 02:50 Troponin I < 0.012 0.022 0.032 Impressions: Chest X-Ray 04/20/17 08:52 IMPRESSION: LOW LUNG VOLUMES. NO SIGNIFICANT RADIOGRAPHIC FINDING IN THE CHEST. Carotid Doppler Study 04/21/17 00:00 IMPRESSION: Atherosclerotic change at the carotid bifurcations bilaterally. Velocities suggest against flow significant proximal ICA stenosis bilaterally Head CT 04/21/17 00:00 IMPRESSION: Extensive small vessel disease. No acute hemorrhage. Tiny focus of acute ischemia seen on MRI 04/20/2017 diffusion-weighted images is not apparent by CT EVIDENCE OF ACUTE STROKE: NO. Head CTA 04/21/17 00:00 IMPRESSION: No CT angio evidence of flow significant carotid bifurcation stenosis, vertebral artery or carotid artery dissection in the neck. No [place] stenosis, vascular malformation, or aneurysm Extensive intracranial white matter chronic small vessel disease with old right deep periventricular white matter infarct extending into the basal ganglia Head MRI 04/21/17 00:00 IMPRESSION: Since the prior MRI 04/20/2017, patient has developed acute ischemic change in the left MCA distribution of the left frontal perisylvian cortex and subcortical white matter, and insular cortex. No acute superimposed hemorrhage. No significant local mass effect. Stable extensive small vessel chronic white matter disease elsewhere in the hemispheres EVIDENCE OF ACUTE STROKE: NO. Neck CTA 04/21/17 00:00 IMPRESSION: No CT angio evidence of flow significant carotid bifurcation stenosis, vertebral artery or carotid artery dissection in the neck. No [place] stenosis, vascular malformation, or aneurysm Extensive intracranial white matter chronic small vessel disease with old right deep periventricular white matter infarct extending into the basal ganglia KUB X-Ray 04/21/17 10:26 IMPRESSION: Nasogastric tube tip and side port in the stomach Assessment & Plan - Diagnosis (1) Left acute arterial ischemic stroke, MCA (middle cerebral artery) Is this a current diagnosis for this admission?: Yes Plan: Admit patient to ICU for acute MCA CVA and new onset A. fib with RVR rate 140. Cardizem drip initiated in the ER. Continue Cardizem drip in ICU. Start Cardizem drip titrate to keep systolic blood pressure greater than 140 due to an acute MCA left-sided CVA. Patient had a sudden hypotensive blood pressure 118 systolic in the ER which responded well to IV fluid bolus 2 L. Rate at 100 cc an hour normal saline. Monitor for further signs and altered mental status changes may need to obtain a repeat head CT without contrast rule out cerebral hemorrhage. Patient was moved to ICU for close monitoring overnight. Upon assessment this morning she did have a change in mental status and appears that her stroke has worsened. I was concerned for cerebral hemorrhage. Repeat head CT was negative for acute hemorrhage. Ordered a MRA negative. Repeat MRI of the brain showed new recent since the prior MRI from yesterday she had developed an acute ischemic change in the left MCA distribution of the left frontal cortex and subcortical white matter and insular cortex with no acute superimposed hemorrhage. Spoke with Dr. 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 Will ask pharmacy to help dose daily PT/INR, every 2 hour neuro checks, updated family. carotids, echo, MRA protocol, speech, PT, discharge planning, (2) Atrial fibrillation with RVR Is this a current diagnosis for this admission?: Yes Plan: Patient was started on Cardizem drip titrate to keep systolic blood pressure greater than 140 150s. Currently being managed by Dr. Fowler. However due to her acute CVA I have called and spoke with Dr. Atul Costa the neurologist at [facility] in [place] who recommend keeping patient on the aspirin and starting Coumadin slowly drift her upward but do not bridge her with heparin. Due to her complexity of do not think we should start any other anticoagulation for A. fib due to her acute CVA except for the Coumadin at this time and the neurologist agreed. This patient is a high risk for cerebral hemorrhage which will be harder to treat than A. fib at this time. (3) UTI (urinary tract infection) Qualifiers: Urinary tract infection type: acute cystitis Hematuria presence: without hematuria Qualified Code(s): N30.00 - Acute cystitis without hematuria Is this a current diagnosis for this admission?: Yes Plan: Initiate Rocephin monitor cultures start Yepez adequately hydrate (4) Fever Qualifiers: Fever type: unspecified Qualified Code(s): R50.9 - Fever, unspecified Is this a current diagnosis for this admission?: Yes (5) Nausea & vomiting Qualifiers: Vomiting type: bilious vomiting Qualified Code(s): R11.14 - Bilious vomiting Is this a current diagnosis for this admission?: Yes (6) DMII (diabetes mellitus, type 2) Qualifiers: Diabetes mellitus complication status: with unspecified complications Diabetes mellitus assisted insulin use: without terminal gauger supervisor use Qualified Code( s): E11.8 - Type 2 diabetes mellitus with unspecified complications Is this a current diagnosis for this admission?: Yes Plan: Accu-Cheks with sliding scale insulin before meals at bedtime
[2017-04-21] MEDS: SOTALOL HCL 80 MG TABLET PO SCH (21:33)
[2017-04-21] MEDS: FAMOTIDINE 20 MG TABLET NG SCH (21:33)
[2017-04-21] MEDS: WARFARIN SODIUM 2 MG TABLET PO SCH (21:33)
--- NOTE | 2017-04-21 21:53 | CONSULTATION REPORT E ---
Consultation Report NAME: NALLELY ALLEN : 1950 AGE: 66Y DATE: 04/21/2017 329 A TO: ARIELLE CAMERON M.D. FROM: INDIRA FLYNN M.D. Requesting Physician REASON FOR CONSULTATION: Patient with paroxysmal atrial fibrillation with a CVA. HISTORY OF PRESENT ILLNESS: The patient is a 66-year-old female, at present aphasic and not responsive, with right-sided hemiparesis and, hence, not able to give a history. History obtained from the patient's . The states that yesterday, that is, Saturday, she was doing okay until she was talking to the patient's sister. At that time he noted that she had slurred speech and also drooping of the right side and weakness of the right side. He called 911 and came to the emergency room where she was found to be in atrial fibrillation with rapid ventricular response and was placed on a Cardizem drip. As per the , at 8 o'clock last night, she was able to talk, although she had right-sided weakness but then afterwards she became aphasic and had right upper and lower extremity weakness and was aphasic and was not responsive. This morning the patient converted to sinus rhythm. The hospitalist taking care of the patient had spoken to [facility] neurologist, and they opined that the patient would be at high risk of bleeding intracranially/intracerebrally and, hence, they wanted the patient to be on aspirin and also to put the patient on Coumadin and let the INR drift up to therapeutic range without Lovenox bridging. At present the patient seems to be very lethargic and nonresponsive and aphasic. She does not recognize people. As per the , she has not had atrial fibrillation in the past. He states that in the past, she has had several TIAs. PAST MEDICAL HISTORY: Positive for history of hypertension, which the states is well controlled and uop-mbbpuvb-xefsladyr diabetes mellitus diagnosed recently. She has had TIAs in the past. There is no history of RI or anginal symptoms. There is no history of seizures, headaches or migraines. There is no history of chronic kidney disease. There is no history of thyroid disease. There is no history of congestive heart failure, prior history of atrial fibrillation or palpitations as per the . She also has no history of congestive heart failure, coronary artery disease or RI or anginal symptoms. She has no history of chronic kidney disease. There is no history of anxiety or depression. ALLERGIES: No known allergies. SOCIAL HISTORY: The patient quite smoking more than 30 years ago. ADVANCED DIRECTIVES: As per the who is the surrogate healthcare decision maker, the patient is a FULL CODE. REVIEW OF SYSTEMS: Not obtainable from the patient but as per the , there is no history of fever, chills or rigors. Denies any headaches or head injury or dizziness. HEENT: Ears - no history of hearing loss, no history of tinnitus. Eyes - no history of amblyopia or diplopia, no history of amaurosis fugax. Nose - no history of hay fever, no history of nose bleeds. Mouth - no history of altered taste sensation as per the , no history of bleeding from the gums. Throat - no complaints of dysphagia or odynophagia. SKIN: No history of pruritus. No history of yellowish discoloration of the skin. No history of skin cancer or psoriasis. NECK: No history of neck pain. No history of goiter. LUNGS: No history of asthma or COPD. No recent symptoms suggestive of upper respiratory tract infection or lower respiratory tract infection or pneumonia. No history of sleep apnea. No history of pulmonary embolism. No history of hemoptysis. No history of pleuritic chest pain. CARDIAC: History of hypertension. This is the first episode of atrial fibrillation. The patient's corrected CHADS-VASc2 score is 5; hence, the patient is a candidate for stroke prevention with chronic anticoagulation, but the patient also at a high risk for intracerebral bleed in view of the patient's significant small vessel disease causing ischemia in the brain. No history of congestive heart failure, no history of RI or angina. No history of palpitations. GASTROINTESTINAL: There is no history of GERD. No history of GI bleed. RENAL: No history of chronic kidney disease. No history of symptoms suggestive of UTI, but the patient is being treated for UTI this admission. ENDOCRINE: History of diabetes mellitus recently diagnosed type 2 non-insulin dependent. No history of polydipsia or polyuria. No history of thyroid disease. CENTRAL NERVOUS SYSTEM: History of TIAs in the past. This is the first time that the patient has had a stroke. Note that the patient's findings on the CAT scan and MRI are out of proportion to the patient's symptoms. This may be because of severe ischemia caused by small vessel disease, which is significant as per imaging studies of the head. No history of headaches, migraines, or seizures. PSYCHIATRIC: No history of anxiety or depression. HEMATOLOGICAL: No history of bleeding diathesis. No history of clotting disorders. MUSCULOSKELETAL: Denies any arthritis or collagen vascular disease. MEDICATIONS: 1. Tylenol 650 mg p.o. q.4 h. p.r.n. 2. Aspirin 300 mg per rectally daily. 3. Glutose 40% gel 15 gm and 30 gm p.o. p.r.n. hypoglycemia. 4. Dextrose 50% 12.5 gm and 25 gm IV p.r.n. hypoglycemia. 5. Glucagon 1 mg IM p.r.n. hypoglycemia. 6. She will get Fluvax on the day of discharge, 0.5 mL intramuscular. 7. She will be on Colace 100 mg via NG tube b.i.d. p.r.n. 8. Pepcid 20 mg via NG tube q.12 h. 9. Accu-Cheks q.6 h. with sliding scale regular insulin coverage. 10. Cardizem drip at 10 mg/hr. 11. Magnesium hydroxide 30 mg via NG at bedtime p.r.n. 12. She got a normal saline bolus of 1000 mL in the emergency room. 13. She is on ceftriaxone 1 gm in 50 mL IV now. 14. She will be started on Coumadin 2 mg p.o. at bedtime from [facility]. PHYSICAL EXAMINATION: GENERAL: Patient is aphasic and does not respond and is nonverbal. She is moderately obese but does not appear to be in any major distress. HEENT: Head is atraumatic, normocephalic. Eyes: Pupils are equal, round, regular, reactive to light. Extraocular movements seem to be normal spontaneously. Ears: Tympanic membranes are intact. External auditory canals are clear. Nose: There is no deviated nasal septum. There is no inflammation of the nasal mucous membranes. Mouth: Mucous membranes of the mouth are moist. Tongue is moist. There are no ulcers. There is no bleeding from the gums. Throat: There is no redness of the oropharynx. There are no exudates. There is no pooling of saliva in the throat. SKIN: There are no skin rashes. There is no petechia or ecchymosis. There are no skin lesions. NECK: Supple. There is no neck stiffness. There is no JVD. Carotids are equal. There is no bruit. There is no goiter. There is no lymphadenopathy. Trachea is central. LUNGS: Clear to auscultation and percussion. HEART: S1 and S2 are heard. At present S1 is of normal intensity. There is no S3 gallop. There is no S4 gallop. There is a systolic murmur in the left sternal border and the apex. There is no rub. ABDOMEN: Soft, nontender. There is no hepatosplenomegaly. Bowel sounds are well heard. EXTREMITIES: Femorals are diminished. There are no femoral bruits. Leg pulses are diminished. There is no pedal edema. There is no cyanosis or clubbing. CENTRAL NERVOUS SYSTEM: The patient has right-sided hemiparesis and the patient has aphasia and the patient is nonverbal and does not respond to any verbal requests/commands. She does not recognize her or her relatives. PSYCHIATRIC: Not tested due to the patient's current condition. The patient will not cooperate. FAMILY HISTORY: Strongly positive for coronary artery disease in her sister and brother and also her father. There is also diabetes mellitus and hypertension in the family. DIAGNOSTIC TEST RESULTS: The patient's white count is 12,800, hemoglobin is 15.1, hematocrit is 43, and platelet count is 321,000. The patient's pro time is 12.5, INR is 0.87, PTT is 26.4. The patient's sodium is 135, potassium 4.0, chloride 101, CO2 20, BUN 7, creatinine 0.52, GFR is greater than 60, glucose is 194, calcium is 8.6. Her hemoglobin A1c is 9.5. The patient's troponin I has been negative x3. The patient's triglycerides are elevated at 326, total cholesterol is elevated at 315.27, and LDL cholesterol is 212, HDL cholesterol is 40. The patient's urine opiate, methadone, barbiturate, phencyclidine, amphetamine, benzodiazepines, cocaine and marijuana screens are all negative. The patient's urine nitrate is positive. Glucose is greater than 500. Urine bacteria is 2+. The patient's urine culture preliminary shows gram-negative rods. Blood culture shows no growth. The patient's EKG done on 04/20 shows atrial fibrillation with ventricular response of 139, left axis deviation, cannot rule out old anterior wall RI versus lead placement. The patient's EKG done subsequently shows on 04/20 at 9:07 shows sinus rhythm, left ventricular hypertrophy, cannot rule out old anterior wall RI. The patient's EKG done today shows sinus rhythm, cannot exclude old inferior RI probably old, anteroseptal infarct old, probable prolonged QT interval, left ventricular hypertrophy. The patient's carotid Doppler shows no significant stenosis except some mild plaquing in the internal carotid artery. The patient's head MRI done yesterday shows extensive small vessel disease, left insular cortex *------*, focal punctate restrictive diffusion. This may represent a small recent tiny area of MCA distribution infarct or artifact, no definite territorial infarct demonstrated otherwise. Evidence of acute stroke possibly left middle cerebral artery territory. The patient's head CT done today shows extensive small vessel disease, no acute hemorrhage, tiny focus of acute ischemia seen on MRI, 04/20/2017, is not apparent by CT. The patient's head CTA shows no CT angio evidence of flow significant carotid bifurcation stenosis, vertebral artery or carotid artery dissection in the neck, no [place] stenosis, vascular malformation or aneurysm, extensive intracranial white matter chronic small vessel disease with old right deep periventricular white matter infarct extending into the basal ganglia. The patient's neck CTA shows no CT angio evidence of flow significant carotid bifurcation stenosis, vertebral artery or carotid stenosis, no [place] stenosis. Extensive intracranial white matter chronic small vessel disease with old right deep periventricular white matter infarct extending into the basal ganglia. The KUB shows that the NG tube is in the stomach. The head MRI repeated today shows patient has developed acute ischemic change in the middle cerebral distribution of the left frontal ivan-sylvian cortex and subcortical white matter and insular cortex, no acute superimposed hemorrhage, no significant loss mass effect, stable extensive small vessel chronic white matter disease and elsewhere in the hemispheres. Evidence of acute stroke now. IMPRESSION: 1. Embolic CVA versus cerebral ischemia extensive due to extensive small vessel disease. 2. Right hemiparesis with aphasia and unresponsiveness. 3. Ischemic small vessel disease of the brain. 4. Paroxysmal atrial fibrillation. 5. Hypertension. 6. Diabetes mellitus type 2, non-insulin dependent. 7. History of TIAs and probably old CVA by MRI. 8. Hyperlipidemia. RECOMMENDATIONS: Since the patient has converted to sinus rhythm, will wean the patient off Cardizem and start the patient on sotalol. Will watch for any proarrhythmia and check the patient's QT interval daily. The patient will be started on Coumadin without Lovenox bridge and will let the patient's PT/INR drift up to therapeutic levels. The patient's prognosis is very poor. Discussed with the patient's and patient's sisters. Medications have been reviewed and adjusted. Note that the patient was seen at 11 a.m., at least 50 minutes spent on this patient, reviewing the patient's medications, laboratory data and other tests. Will check an echocardiogram in the morning since the EKG shows old inferior RI and also extensive anteroseptal RI. Note that the patient is not in any heart failure. Note: The medical decision making is of high complexity. The patient's prognosis is very guarded. Will follow with you. Discussed with the hospitalist taking care of the patient. Discussed with the family in detail. As per the , the patient will be a FULL CODE and the is the surrogate healthcare decision maker. Thanking you. DICTATING PHYSICIAN: ARIELLE CAMERON M.D. [id number] PHY#: [id number] ID: [id number] JOB#: [id number] ACCT: [id number] cc:ARIELLE CAMERON M.D. >
[2017-04-21] MEDS ORDERED: DILTIAZEM HCL 30 MG TABLET PO SCH (22:00)
[2017-04-21] MEDS ORDERED: WARFARIN SODIUM 2.5 MG TABLET PO SCH (22:00)
--- NOTE | 2017-04-21 22:56 | EKG REPORT ---
SEVERITY:- ABNORMAL ECG - SINUS RHYTHM PROBABLE LEFT ATRIAL ABNORMALITY LEFT VENTRICULAR HYPERTROPHY INFERIOR INFARCT, AGE INDETERMINATE ANTEROLATERAL INFARCT, OLD BORDERLINE PROLONGED QT INTERVAL : Confirmed by: Justine Peñaloza 21-Apr-2017 22:55:53
[2017-04-21] MEDS ORDERED: DIPHENHYDRAMINE HCL 50 MG/ML VIAL IV ONE (23:30)
--- NOTE | 2017-04-22 03:50 | Physician Advisory Note ---
Physician Advisor ProgressNote .: [facility] have [facility] medical record for this patient. Physician Advisor Statement: Very nice documentation of Acute ischemic CVA of left MCA distribution with cerebral infarction. Please consider documenting, if you agree: 1. "Rt [dominant or nondominant] hemiparesis" 2. "Cerebrovascular atherosclerotic disease" 3. "Paroxysmal Afib" (or "persistent Afib" - need type specified) 4. "Acute mild hyponatremia, likely due to " [intravascular volume depletion?] 5. Please clarify attending note from 04/21, which seems to have possible discrepancies compared to other notes - appears to have "copy/paste" information (which can lead to payer denials & increase legal risk for attending) - A. "Admit to ICU", "moved to ICU" - or was she already in the ICU by 04/21 ? B. "Start Cardizem drip" - or was she already on Cardizem drip since 04/20 ? Header Up note 04/21 states that "this morning the patient converted to sinus rhythm", & plan to "wean off Cardizem". C. "May need to obtain a repeat head CT ..." - a 3rd CT? Reason? 6. Status: Appropriate to change to Inpatient status as of 04/21. Thanks for your help in improving documentation clarity & specificity. CK
[2017-04-22] MEDS: NORMAL SALINE 1000 ML 1,000 ML IV PRN (07:18)
--- NOTE | 2017-04-22 07:51 | EKG REPORT ---
SEVERITY:- ABNORMAL ECG - SINUS RHYTHM LEFT VENTRICULAR HYPERTROPHY INFERIOR INFARCT, AGE INDETERMINATE EXTENSIVE ANTERIOR INFARCT, AGE INDETERMINATE BORDERLINE PROLONGED QT INTERVAL : Confirmed by: Chon Craig MD 22-Apr-2017 07:49:46
[2017-04-22 08:20] LABS: HEMATOCRIT 39.3 % (36.0-47.0); HEMOGLOBIN 13.8 g/dL (12.0-15.5); HGB HCT DIFFERENCE 2.1; MEAN CORPUSCULAR HEMOGLOBIN 30.5 pg (27.0-33.4); MEAN CORPUSCULAR HGB CONC 35.2 g/dL (32.0-36.0); MEAN CORPUSCULAR VOLUME 87 fl (80-97); RED BLOOD COUNT 4.54 10^6/uL (3.72-5.28); RED CELL DISTRIBUTION WIDTH 12.8 % (11.5-14.0); WHITE BLOOD COUNT 10.3 10^3/uL (4.0-10.5)
[2017-04-22 08:29] LABS: PROTHROMBIN TIME 13.8 SEC (11.4-15.4)
[2017-04-22 08:48] LABS: ANION GAP 12 (5-19); BLOOD UREA NITROGEN 13 mg/dL (7-20); CALCIUM 8.5 mg/dL (8.4-10.2); CARBON DIOXIDE 23 mmol/L (22-30); CHLORIDE 103 mmol/L (98-107); CREATININE RESULT 0.62 mg/dL (0.52-1.25); GLUCOSE 136 mg/dL (75-110); POTASSIUM 3.7 mmol/L (3.6-5.0)
[2017-04-22] MEDS: SOTALOL HCL 80 MG TABLET PO SCH (10:57)
[2017-04-22] MEDS: FAMOTIDINE 20 MG TABLET NG SCH (10:58)
[2017-04-22] MEDS: ASPIRIN 300 MG SUPP, RECTAL PR SCH (12:16)
--- NOTE | 2017-04-22 12:32 | PDOC PROGRESS REPORT ---
Subjective Progress Note for:: 04/22/17 Subjective:: Unfortunately since I last saw the patient, she has had worsening of her acute stroke. She had acute decompensation in the emergency room while waiting to be transferred to the [facility] and subsequently was transported to the ICU instead. She currently has right-sided neglect and no use of her right upper extremity whatsoever. The patient is not able to speak to me. Her 2 sisters are at the bedside. Her sister states that she is the power of trial attorney despite the fact that the patient has a . NG tube was placed but the patient pulled it out overnight. It is been replaced since then. Reason For Visit: TIA/UTI Physical Exam Vital Signs: Temp Pulse Resp BP Pulse Ox 97.4 F 66 20 143/68 H 96 04/22/17 07:25 04/22/17 07:25 04/22/17 07:25 04/22/17 07:25 04/22/17 10:05 Intake & Output 04/21/17 04/22/17 04/23/17 06:59 06:59 06:59 Intake Total 2833 2013 Output Total 2474 2024 Balance 358 -11 Weight 81 kg 79.6 kg GENERAL: This is a well-developed well-nourished appearing white female resting in bed currently appearing despondent HEENT: Normocephalic atraumatic. Trachea is midline sclera are anicteric. NG tube is in place. HEART: Regular rate and rhythm. No murmurs, rubs or gallops. LUNGS: Clear to auscultation anteriorly bilaterally with equal rise and fall of the chest. ABDOMEN: Soft, nontender, nondistended with normoactive bowel sounds EXTREMETIES: No clubbing, cyanosis or edema. 2+ peripheral pulses bilaterally. NEURO: Awake. The patient seems to have a right-sided neglect. She cannot focus on me at all when I am on her right. She randomly raises her left arm and slings her left leg out of the bed. She is able to wiggle her toes on the right side. When asked to picker packer her leg she does not do it but I think she has barriers to comprehension. She is able however to squeeze with her left hand. The patient is not able to squeeze with her right. Squeezing my hand is the most that I can get her to cooperate with and at times that does not seem deliberate. The patient is aphasic. Results Laboratory Results: 04/22/17 07:29 04/22/17 07:29 04/22/17 04/22/17 07:29 07:29 WBC 10.3 RBC 4.54 Hgb 13.8 Hct 39.3 MCV 87 MCH 30.5 MCHC 35.2 RDW 12.8 Plt Count 301 Sodium 138.0 Potassium 3.7 Chloride 103 Carbon Dioxide 23 Anion Gap 12 BUN 13 Creatinine 0.62 Est GFR ( Amer) > 60 Est GFR (Non-Af Amer) > 60 Glucose 136 H Calcium 8.5 04/20/17 16:30 Catheterized Urine Urine Culture - Final NO GROWTH 2 DAYS 04/20/17 04/20/17 04/21/17 14:55 20:45 02:50 Troponin I < 0.012 0.022 0.032 Impressions: Chest X-Ray 04/20/17 08:52 IMPRESSION: LOW LUNG VOLUMES. NO SIGNIFICANT RADIOGRAPHIC FINDING IN THE CHEST. Carotid Doppler Study 04/21/17 00:00 IMPRESSION: Atherosclerotic change at the carotid bifurcations bilaterally. Velocities suggest against flow significant proximal ICA stenosis bilaterally Head CT 04/21/17 00:00 IMPRESSION: Extensive small vessel disease. No acute hemorrhage. Tiny focus of acute ischemia seen on MRI 04/20/2017 diffusion-weighted images is not apparent by CT EVIDENCE OF ACUTE STROKE: NO. Head CTA 04/21/17 00:00 IMPRESSION: No CT angio evidence of flow significant carotid bifurcation stenosis, vertebral artery or carotid artery dissection in the neck. No [place] stenosis, vascular malformation, or aneurysm Extensive intracranial white matter chronic small vessel disease with old right deep periventricular white matter infarct extending into the basal ganglia Head MRI 04/21/17 00:00 IMPRESSION: Since the prior MRI 04/20/2017, patient has developed acute ischemic change in the left MCA distribution of the left frontal perisylvian cortex and subcortical white matter, and insular cortex. No acute superimposed hemorrhage. No significant local mass effect. Stable extensive small vessel chronic white matter disease elsewhere in the hemispheres EVIDENCE OF ACUTE STROKE: NO. Neck CTA 04/21/17 00:00 IMPRESSION: No CT angio evidence of flow significant carotid bifurcation stenosis, vertebral artery or carotid artery dissection in the neck. No [place] stenosis, vascular malformation, or aneurysm Extensive intracranial white matter chronic small vessel disease with old right deep periventricular white matter infarct extending into the basal ganglia KUB X-Ray 04/21/17 10:26 IMPRESSION: Nasogastric tube tip and side port in the stomach Assessment & Plan - Diagnosis (1) Left acute arterial ischemic stroke, MCA (middle cerebral artery) Is this a current diagnosis for this admission?: Yes Plan: Left MCA stroke with right-sided neglect and right hemiparesis. Unfortunately, the patient is also left with expressive and receptive aphasia as well as dysphagia. I suspect this was made worse when she went into atrial fibrillation. Continue with statin per NG tube. Speech consult pending. However, the patient failed the bedside swallowing screen. Echocardiogram completed but read is pending. Carotid Dopplers as well as neck CTA is without any significant stenosis. Control hypertension. Continue aspirin. Patient was started on Coumadin yesterday. No heparin bolus and bridging. Will allow Coumadin levels to drift upward. (2) DMII (diabetes mellitus, type 2) Qualifiers: Diabetes mellitus complication status: with unspecified complications Diabetes mellitus senior care insulin use: without supervisor intermediates use Qualified Code( s): E11.8 - Type 2 diabetes mellitus with unspecified complications Is this a current diagnosis for this admission?: Yes Plan: Sliding scale insulin. Continue n.p.o. status. (3) UTI (urinary tract infection) Qualifiers: Urinary tract infection type: acute cystitis Hematuria presence: without hematuria Qualified Code(s): N30.00 - Acute cystitis without hematuria Is this a current diagnosis for this admission?: Yes Plan: Continue Rocephin daily. Somehow the patient's Rocephin was dropped from the jul yesterday. Resume Rocephin. Urine cultures show E. coli that are joe susceptible. (4) Atrial fibrillation with RVR Is this a current diagnosis for this admission?: Yes Plan: Status post 20 mg Cardizem bolus and Cardizem drip. Cardiology is following. The patient is now in sinus rhythm. Echo has been done but the read is pending. Patient is currently on sotalol and seems to be tolerating that well. Continue morning EKGs. - Time Time Spent with patient: 15-24 minutes Anticipated discharge: SNF Within: when bed available - Inpatient Certification Medical Necessity: Need Close Monitoring Due to Risk of Patient Decompensation - Plan Summary Plan Summary: The patient will need placement in snf facility. Will contact discharge planning.
[2017-04-22] MEDS ORDERED: ASPIRIN 81 MG TABLET, CHEWABLE NG ONE (13:00)
[2017-04-22] MEDS: CEFTRIAXONE 1 GM/D5W RTU 1 GM/50 ML RTUPB IV SCH (13:09)
--- NOTE | 2017-04-22 13:26 | XCELERA REPORT ---
[address] [address] Transthoracic Echocardiogram Report Name: NALLELY ALLEN Age: 66 yrs Gender: Female : 1950 Patient Status: Inpatient Patient Location: [address] [place] [address] Study Date: 04/22/2017 10:24 AM Weight: 178 lb Procedure: A two-dimensional transthoracic echocardiogram with color flow and Doppler was performed. Study Quality: Fair. Reason For Study: Paroxysmal Atrial Fibrillation/ CVA /Murmur History: Paroxysmal Atrial Fibrillation/ CVA /Murmur. Ordering Physician: JACKIE CAMERON Performed By: Daphnie Gilman Interpretation Summary There is no obvious cardiac source of embolus noted on this transthoracic echocardiogram. Follow-up with a SOBEIDA is suggested if cardiac source is still suspected. The left ventricle is normal in size. There is normal left ventricular wall thickness. LV EF is 60% Left ventricular systolic function is normal. Doppler measurements suggest impaired left ventricular relaxation, which is associated with grade I/IV or mild diastolic dysfunction The left ventricular wall motion is normal. There is no thrombus. The right ventricle is grossly normal size. The right ventricle is not well visualized secondary to technical limitations The right atrium is normal. The left atrial size is normal. The interatrial septum is intact with no evidence for an atrial septal defect. There is no evidence of mitral valve prolapse. There is no mitral valve stenosis. There is no mitral regurgitation noted. There is no aortic valvular vegetation. There is mild aortic scclerosis without stenosis. There is no LVOT obstruction. No aortic regurgitation is present. There is no tricuspid stenosis. There is a trace amount of tricuspid regurgitation Right ventricular systolic pressure is normal. RVSP is 25 mm of Hg ,with RA mean of 5. The aortic root is normal size. There is no pericardial effusion. There is no obvious cardiac source of embolus noted on this transthoracic echocardiogram. Follow-up with a SOBEIDA is suggested if cardiac source is still suspected MMode/2D Measurements & Calculations RVDd: 3.2 cm LVIDd: 5.0 cm FS: 26.4 % Ao root diam: 2.6 cm IVSd: 1.0 cm LVIDs: 3.7 cm EDV(Teich): 118.3 ml Ao root area: 5.3 cm2 LVPWd: 0.99 cm ESV(Teich): 57.4 ml EF(Teich): 51.5 % Doppler Measurements & Calculations MV E max leonarda: MV dec slope: Ao V2 max: LV V1 max P.1 cm/sec 235.2 cm/sec2 133.9 cm/sec 2.9 mmHg MV A max leonarda: MV dec time: Ao max PG: LV V1 max: 94.3 cm/sec 0.26 sec 7.2 mmHg 84.7 cm/sec MV E/A: 0.65 PA V2 max: TR max leonarda: 82.8 cm/sec 202.4 cm/sec PA max PG: TR max P.7 mmHg 2.7 mmHg Left Ventricle The left ventricle is normal in size. There is normal left ventricular wall thickness. LV EF is 60%. Left ventricular systolic function is normal. Doppler measurements suggest impaired left ventricular relaxation, which is associated with grade I/IV or mild diastolic dysfunction. The left ventricular wall motion is normal. There is no thrombus. There is no ventricular septal defect visualized. Right Ventricle The right ventricle is grossly normal size. The right ventricle is not well visualized secondary to technical limitations. Atria The right atrium is normal. The left atrial size is normal. The interatrial septum is intact with no evidence for an atrial septal defect. Mitral Valve There is no evidence of mitral valve prolapse. There is no vegetation seen on the mitral valve. There is no mitral valve stenosis. There is no mitral regurgitation noted. Aortic Valve There is no aortic valvular vegetation. There is mild aortic scclerosis without stenosis. There is no LVOT obstruction. No aortic regurgitation is present. Tricuspid Valve There is no tricuspid stenosis. There is a trace amount of tricuspid regurgitation. Right ventricular systolic pressure is normal. RVSP is 25 mm of Hg ,with RA mean of 5. Pulmonic Valve There is no pulmonic valvular stenosis. There is no pulmonic valvular regurgitation. Great Vessels The aortic root is normal size. Effusions There is no pericardial effusion. : JACKIE CAMERON > Jackie Cameron
[2017-04-22 17:18] LABS: APPEARANCE,URINE CLEAR; BILIRUBIN,URINE NEGATIVE (NEGATIVE); GLUCOSE, URINE NEGATIVE (NEGATIVE); KETONES,URINE 20 mg/dL (NEGATIVE); LEUKOCYTE ESTERASE,URINE LARGE (NEGATIVE); NITRITE,URINE NEGATIVE (NEGATIVE); PROTEIN,URINE 30 mg/dL (NEGATIVE); URINE SPECIFIC GRAVITY 1.015; UROBILINOGEN,URINE NEGATIVE mg/dL (<2.0)
--- NOTE | 2017-04-22 21:08 | PROGRESS NOTE E ---
Progress Note NAME: NALLELY ALLEN : 1950 AGE: 66Y DATE: 04/22/2017 ROOM: 329 SUBJECTIVE: The patient continues to have right-sided weakness and the patient is aphasic. The patient will be undergoing a swallow test. She has neglect of the right side. She is not responsive and she is nonverbal. She remains in sinus rhythm. There is no ventricular arrhythmia seen. She is tolerating the sotalol. OBJECTIVE: GENERAL: On examination the patient is moderately obese, seems to be slightly restless, is well-groomed. VITAL SIGNS: She is afebrile with a temperature of 98 degrees Fahrenheit, pulse is 74 beats per minute, blood pressure 151/74, respirations are 24 per minute, O2 saturations are 93% on room air. HEENT: Head is atraumatic, normocephalic. Eyes: Pupils are equal, round and regular, reactive to light and accommodation. Extraocular movements are normal. There is no conjunctival pallor. There is no scleral icterus. ENT is negative. NECK: Supple. There is no JVD. There is no lymphadenopathy. There is no goiter. Carotids are equal. There is no bruit. Trachea is central. LUNGS: Clear to auscultation and percussion. There is no chest wall tenderness. HEART: S1 and S2 is heard. S1 is of normal intensity. There is no S3 gallop. There is no S4 gallop. There is a systolic murmur in the left sternal border and the apex. There is no rub. ABDOMEN: Soft, obese, nontender. There is no hepatosplenomegaly. Bowel sounds are well heard. There are no tender areas or masses. EXTREMITIES: Femorals are deep. Femoral are diminished. There are no femoral bruits. Leg pulses are diminished. There is no pedal edema. There is no DVT or cellulitis. CENTRAL NERVOUS SYSTEM: The patient has right-sided hemiparesis and has aphasia. The patient is nonverbal and does not respond to any verbal requests/commands. She does not recognize her family. PSYCHIATRIC: Not tested. The patient does not appear to be agitated. DIAGNOSTIC STUDIES: The patient's EKG shows sinus rhythm, LVH, old inferior wall PA, extensive anterior PA, age indeterminate, borderline prolonged QT interval, and QTC is 488. Prior to starting the patient on sotalol her QTC was 500. The patient's echocardiogram shows there is no obvious source of cardiac emboli noted, recommend SOBEIDA if cardiac source is still suspected. There is normal left ventricular wall thickness, LVEF is 60%, left ventricular systolic function is normal, there is no wall motion abnormality, there is no thrombus. There is no mitral regurgitation or mitral stenosis or mitral valve prolapse. There is mild aortic sclerosis without stenosis. There is no aortic regurgitation. There is a trace amount of tricuspid regurgitation. Right ventricular systolic pressure is normal at 25 mmHg. There is no pericardial effusion. LABORATORY DATA: The patient's white count is 10,300; hemoglobin is 13.8; hematocrit is 39.3; platelet count is 301,000. The patient's sodium is 138, potassium 3.7, chloride 103, CO2 is 23. The patient's BUN is 13, creatinine is 0.62, GFR is greater than 60. Her glucose is 136 and calcium is 8.5. The patient's ProTime is 13.8, INR is 0.99. IMPRESSION: 1. EMBOLIC CVA AND CEREBRAL ISCHEMIA SECONDARY TO EXTENSIVE SMALL VESSEL DISEASE. 2. RIGHT HEMIPARESIS WITH APHASIA AND UNRESPONSIVENESS WITH RIGHT-SIDED NEGLECT. 3. ISCHEMIC SMALL VESSEL DISEASE OF THE VEIN WHICH IS SIGNIFICANT. 4. PAROXYSMAL ATRIAL FIBRILLATION. Continue the patient on sotalol. The patient is being started on Coumadin and would let the INR drift slowly to its therapeutic levels. 5. HYPERTENSION, WELL-CONTROLLED FOR A PATIENT WITH ACUTE STROKE. 6. DIABETES MELLITUS TYPE 2, NONINSULIN DEPENDENT. 7. HISTORY OF TIA AND PROBABLY OLD CVA BY MRI. 8. HYPERLIPIDEMIA. PLAN: As mentioned earlier, would recommend continue the patient's sotalol, continue the patient's Coumadin and slowly have the INR drift to therapeutic levels. Since the patient is high risk for bleeding with an acute anticoagulation. The patient's medications have been reviewed and discussed with the other caregiving providers on the case, discussed with the family. The patient most likely will be transferred to a senior living facility since she cannot take care of herself and the and the family will not be able to cope with maintaining her living in her house. TIME SPENT: Note 30 minutes spent on this patient with more than 50 percent of the time spent on direct patient care. The patient will have a swallow study. Note medical decision making is of still high complexity. We will follow with you. DICTATING PHYSICIAN: ARIELLE CAMERON M.D. [id number] PHY#: [id number] ID: [id number] JOB#: [id number] ACCT: [id number] cc: >
[2017-04-23] MEDS: SIMVASTATIN 40 MG TABLET NG SCH ×2 (00:06→21:44)
[2017-04-23] MEDS: FAMOTIDINE 20 MG TABLET NG SCH ×3 (00:06→21:44)
[2017-04-23] MEDS: SOTALOL HCL 80 MG TABLET PO SCH ×3 (00:07→21:44)
[2017-04-23] MEDS: WARFARIN SODIUM 2 MG TABLET PO SCH ×2 (00:07→21:44)
--- NOTE | 2017-04-23 00:18 | RADIOLOGY REPORT (SQ) ---
EXAM DESCRIPTION: CHEST SINGLE VIEW CLINICAL HISTORY: 66 years, Female, NG tube confirmation COMPARISON: None. NUMBER OF VIEWS: 1 TECHNIQUE: Frontal LIMITATIONS: Targeted exam for NG tube. FINDINGS: Tip and proximal port of an enteric tube is at the left upper abdominal quadrant/stomach. Moderate lung volumes. Prominent interstitium. Mild disc desiccation. IMPRESSION: Enteric tube. 2010 [employer]- All Rights Reserved
[2017-04-23] MEDS: NORMAL SALINE 1000 ML 1,000 ML IV PRN ×2 (03:35→14:36)
[2017-04-23 05:36] LABS: HEMATOCRIT 40.9 % (36.0-47.0); HEMOGLOBIN 14.4 g/dL (12.0-15.5); HGB HCT DIFFERENCE 2.3; MEAN CORPUSCULAR HEMOGLOBIN 30.6 pg (27.0-33.4); MEAN CORPUSCULAR HGB CONC 35.2 g/dL (32.0-36.0); MEAN CORPUSCULAR VOLUME 87 fl (80-97)
[2017-04-23 05:43] LABS: PROTHROMBIN TIME 13.3 SEC (11.4-15.4)
--- NOTE | 2017-04-23 08:05 | EKG REPORT ---
SEVERITY:- ABNORMAL ECG - SINUS RHYTHM LEFT VENTRICULAR HYPERTROPHY INFERIOR INFARCT, AGE INDETERMINATE EXTENSIVE ANTERIOR INFARCT, AGE INDETERMINATE BORDERLINE PROLONGED QT INTERVAL : Confirmed by: Chon Craig MD 23-Apr-2017 08:04:32
[2017-04-23] MEDS: ASPIRIN 81 MG TABLET, CHEWABLE NG SCH (09:48)
--- NOTE | 2017-04-23 11:41 | PDOC PROGRESS REPORT ---
Subjective Progress Note for:: 04/23/17 Subjective:: I received a phone call from speech therapy stating that the patient actually looks a little bit better today but that they recommended a modified barium swallow study. Is likely to have this done tomorrow. No acute events overnight. Her sister is at the bedside. She thinks she looks better as well. She tells me that the patient tried to say each 1 of her sisters names earlier today. She also tells me that she has been in touch with the patient's who apparently has a difficult time medically. She is going to try and bring him up. To see his tomorrow. She tells me that they have all discussed it and that they agreed that she would not want lifesaving measures and tend to make her DNR. They still agree apparently that the patient is to go to [facility] facility.. Reason For Visit: LEFT ACUTE ARTERIAL ISCHEMIC STROKE,MCA, Physical Exam Vital Signs: Temp Pulse Resp BP Pulse Ox 99.3 F 76 14 154/76 H 94 04/23/17 07:59 04/23/17 07:59 04/23/17 07:59 04/23/17 07:59 04/23/17 07:59 Intake & Output 04/22/17 04/23/17 04/24/17 06:59 06:59 06:59 Intake Total 2355 Output Total 920 Balance 1435 Weight 86.2 kg GENERAL: This is a well-developed well-nourished appearing white female resting in bed currently in no acute distress. HEENT: Normocephalic atraumatic. Trachea is midline sclera are anicteric. NG tube is in place. HEART: Regular rate and rhythm. No murmurs, rubs or gallops. LUNGS: Clear to auscultation anteriorly bilaterally with equal rise and fall of the chest. ABDOMEN: Soft, nontender, nondistended with normoactive bowel sounds EXTREMETIES: No clubbing, cyanosis or edema. 2+ peripheral pulses bilaterally. NEURO: Awake. The patient seems to have a right-sided neglect. She cannot focus on me at all, when I am on her right. The patient is aphasic. She does not appear changed from yesterday. Results Laboratory Results: 04/23/17 05:00 04/22/17 04/23/17 16:56 05:00 WBC 11.0 H RBC 4.70 Hgb 14.4 Hct 40.9 MCV 87 MCH 30.6 MCHC 35.2 RDW 13.0 Plt Count 296 Urine Color YELLOW Urine Appearance CLEAR Urine pH 6.0 Ur Specific [place] 1.015 Urine Protein 30 H Urine Glucose (UA) NEGATIVE Urine Ketones 20 H Urine Blood SMALL H Urine Nitrite NEGATIVE Ur Leukocyte Esterase LARGE H Urine WBC (Auto) 25 Urine RBC (Auto) 17 Impressions: Carotid Doppler Study 04/21/17 00:00 IMPRESSION: Atherosclerotic change at the carotid bifurcations bilaterally. Velocities suggest against flow significant proximal ICA stenosis bilaterally Head CT 04/21/17 00:00 IMPRESSION: Extensive small vessel disease. No acute hemorrhage. Tiny focus of acute ischemia seen on MRI 04/20/2017 diffusion-weighted images is not apparent by CT EVIDENCE OF ACUTE STROKE: NO. Head CTA 04/21/17 00:00 IMPRESSION: No CT angio evidence of flow significant carotid bifurcation stenosis, vertebral artery or carotid artery dissection in the neck. No [place] of Krish[place]thy stenosis, vascular malformation, or aneurysm Extensive intracranial white matter chronic small vessel disease with old right deep periventricular white matter infarct extending into the basal ganglia Head MRI 04/21/17 00:00 IMPRESSION: Since the prior MRI 04/20/2017, patient has developed acute ischemic change in the left MCA distribution of the left frontal perisylvian cortex and subcortical white matter, and insular cortex. No acute superimposed hemorrhage. No significant local mass effect. Stable extensive small vessel chronic white matter disease elsewhere in the hemispheres EVIDENCE OF ACUTE STROKE: NO. Neck CTA 04/21/17 00:00 IMPRESSION: No CT angio evidence of flow significant carotid bifurcation stenosis, vertebral artery or carotid artery dissection in the neck. No [place] of [place] stenosis, vascular malformation, or aneurysm Extensive intracranial white matter chronic small vessel disease with old right deep periventricular white matter infarct extending into the basal ganglia KUB X-Ray 04/21/17 10:26 IMPRESSION: Nasogastric tube tip and side port in the stomach Chest X-Ray 04/22/17 23:42 IMPRESSION: Enteric tube. 2010 [employer]- All Rights Reserved Assessment & Plan - Diagnosis (1) Left acute arterial ischemic stroke, MCA (middle cerebral artery) Is this a current diagnosis for this admission?: Yes Plan: Left MCA stroke with right-sided neglect and right hemiparesis. Unfortunately, the patient is also left with expressive and receptive aphasia as well as dysphagia. I suspect this was made worse when she went into atrial fibrillation. Continue with statin per NG tube. Speech consult recommends modified barium swallow study. This will be done tomorrow. Echocardiogram shows EF 60% with grade 1 out of 6 mild diastolic dysfunction no vegetation seen. Carotid Dopplers as well as neck CTA is without any significant stenosis. Control hypertension. Continue aspirin. Patient was started on Coumadin. No heparin bolus and bridging. Will allow Coumadin levels to drift upward. PT and INR. (2) DMII (diabetes mellitus, type 2) Qualifiers: Diabetes mellitus complication status: with unspecified complications Diabetes mellitus [place] insulin use: without jail use Qualified Code( s): E11.8 - Type 2 diabetes mellitus with unspecified complications Is this a current diagnosis for this admission?: Yes Plan: Sliding scale insulin. Continue n.p.o. status. (3) UTI (urinary tract infection) Qualifiers: Urinary tract infection type: acute cystitis Hematuria presence: without hematuria Qualified Code(s): N30.00 - Acute cystitis without hematuria Is this a current diagnosis for this admission?: Yes Plan: Continue Rocephin daily For total of 7 days. urine cultures show E. coli that is joe susceptible. (4) Atrial fibrillation with RVR Is this a current diagnosis for this admission?: Yes - Time Time Spent with patient: 15-24 minutes Anticipated discharge: SNF Within: within 72 hours
[2017-04-23] MEDS: CEFTRIAXONE 1 GM/D5W RTU 1 GM/50 ML RTUPB IV SCH (14:35)
--- NOTE | 2017-04-23 22:48 | PROGRESS NOTE E ---
Progress Note NAME: NALLELY ALLEN : 1950 AGE: 66Y DATE: 04/23/2017 ROOM: 329 SUBJECTIVE: The patient's status is the same. She has right-sided hemiparesis and is not responsive. She also has difficulty swallowing. She is aphasic. There is no arrhythmia on the sotalol and no recurrence of atrial fibrillation. OBJECTIVE: VITAL SIGNS: The patient is afebrile with a temperature of 98.7 degrees Fahrenheit, pulse is 66 beats per minute regular rhythm, blood pressure is 149/72, respirations are 22 per minute, O2 saturations are 94% on room air. GENERAL: On examination, the patient is moderately obese, seems to be restless, is well-groomed. HEENT: Head is atraumatic, normocephalic. Eyes: Pupils are equal, round and regular, reactive to light. The patient will not cooperate for an ENT exam. NECK: Supple. There is JVD. There is no lymphadenopathy. There is no goiter. Carotids are equal. There is no bruit. Trachea is central. LUNGS: Clear to auscultation and percussion. There is no chest wall tenderness. HEART: S1 and S2 is heard. S1 is of normal intensity. There is no S3 gallop. There is no S4 gallop. There is a systolic murmur in the left sternal border and the apex. There is no rub. ABDOMEN: Soft, obese, nontender. There is no hepatosplenomegaly. Bowel sounds are well heard. There are no tender areas or masses. EXTREMITIES: Femorals are deep. Femoral are diminished. There are no femoral bruits. Leg pulses are diminished. There is no pedal edema. There is no DVT or cellulitis. CENTRAL NERVOUS SYSTEM: The patient has right-sided hemiparesis and has aphasia and has right-sided neglect. She is nonverbal. PSYCHIATRIC: Not tested. DIAGNOSTIC STUDIES: The patient's EKG shows sinus rhythm, left ventricular hypertrophy, left anterior fascicular block versus old inferior wall NV, poor R-wave in V1-V6, cannot rule out old anterior NV. Note that the patient's QTC is 437. Earlier this morning the QTc on her EKG, which was not much change, is 506; hence, the QTc is not prolonged; it has actually come down. LABORATORY DATA: The patient's white count is *------*, hemoglobin is 17.4; hematocrit is *------*; platelet count is 296,000. The patient's glucose is 109. IMPRESSION: 1. EMBOLIC CVA AND CEREBRAL ISCHEMIA SECONDARY TO EXTENSIVE SMALL VESSEL DISEASE CAUSING RIGHT HEMIPARESIS. 2. RIGHT HEMIPARESIS WITH APHASIA AND UNRESPONSIVENESS WITH RIGHT-SIDED NEGLECT. 3. ISCHEMIC SMALL VESSEL DISEASE OF THE BRAIN WHICH IS SIGNIFICANT. 4. PAROXYSMAL ATRIAL FIBRILLATION. The patient is in sinus rhythm on sotalol. Continue sotalol. The patient has no proarrhythmia and no prolonged QTc on sotalol. The patient is on Coumadin. Her pro time is 13.3, INR is 0.95. 5. HYPERTENSION. Seems to be fairly controlled. 6. DIABETES MELLITUS TYPE 2, NONINSULIN DEPENDENT. 7. HISTORY OF TIA AND PROBABLY OLD CVA BY MRI. 8. HYPERLIPIDEMIA. RECOMMENDATION: Continue sotalol. Continue supportive treatment. Will sign off the case as discussed with the attending physician on the case. TIME SPENT: Note 25 minutes spent on this patient with more than 50 percent of the time spent on direct patient care and medications have been reviewed. Medical decision making at present is of moderate complexity cardiac-silvestre. Thanking you. DICTATING PHYSICIAN: ARIELLE CAMERON M.D. [id number] BRUCE#: [id number] ID: [id number] JOB#: [id number] ACCT: [id number] cc: >
[2017-04-24] MEDS: NORMAL SALINE 1000 ML 1,000 ML IV PRN ×2 (00:39→12:10)
[2017-04-24 02:48] LABS: APPEARANCE,URINE CLEAR; BILIRUBIN,URINE NEGATIVE (NEGATIVE); GLUCOSE, URINE NEGATIVE (NEGATIVE); KETONES,URINE 80 mg/dL (NEGATIVE); LEUKOCYTE ESTERASE,URINE TRACE (NEGATIVE); NITRITE,URINE NEGATIVE (NEGATIVE); PROTEIN,URINE NEGATIVE (NEGATIVE); URINE SPECIFIC GRAVITY 1.016; UROBILINOGEN,URINE NEGATIVE mg/dL (<2.0)
[2017-04-24 05:59] LABS: PROTHROMBIN TIME 14.4 SEC (11.4-15.4)
--- NOTE | 2017-04-24 08:03 | EKG REPORT ---
SEVERITY:- ABNORMAL ECG - SINUS RHYTHM LEFT VENTRICULAR HYPERTROPHY INFERIOR INFARCT, AGE INDETERMINATE EXTENSIVE ANTERIOR INFARCT, AGE INDETERMINATE QTC 470 MS : Confirmed by: Chon Craig MD 24-Apr-2017 08:02:56
--- NOTE | 2017-04-24 08:06 | EKG REPORT ---
SEVERITY:- ABNORMAL ECG - SINUS RHYTHM LEFT VENTRICULAR HYPERTROPHY INFERIOR INFARCT, AGE INDETERMINATE EXTENSIVE ANTERIOR INFARCT, AGE INDETERMINATE QTC 437MS. : Confirmed by: Chon Craig MD 24-Apr-2017 08:04:51
[2017-04-24] MEDS: FAMOTIDINE 20 MG TABLET NG SCH ×2 (09:56→23:34)
[2017-04-24] MEDS: SOTALOL HCL 80 MG TABLET PO SCH ×2 (09:56→23:36)
[2017-04-24] MEDS: ASPIRIN 81 MG TABLET, CHEWABLE NG SCH (09:57)
[2017-04-24] MEDS: CEFTRIAXONE 1 GM/D5W RTU 1 GM/50 ML RTUPB IV SCH (12:09)
--- NOTE | 2017-04-24 12:56 | PDOC PROGRESS REPORT ---
Subjective Progress Note for:: 04/24/17 Subjective:: Patient admitted on the for acute onset altered mental status and was found to have a large MCA CVA, A. fib with RVR. After discussion with neurology by telephone, see other providers notes for details, decision was made to initiate anticoagulation but without heparin bridge or loading dose. She is currently receiving empiric aspirin and Coumadin. She is displayed difficulty swallowing and underwent a modified barium swallow this morning. I spoke with speech therapy who indicated she struggled taking only small bites and they can only clear her for honey thickened liquids with pured diet at this time. NG tube was placed previously so the medications could be administered. Her atrial fibrillation converted with use of sotalol. I spoke with Dr. Fowler regarding ongoing treatment and he outlined pharmaceutical management with sotalol and anticoagulation with Coumadin. Currently she is largely nonverbal, though she will answer yes or no questions if she is not consistent with her answers for me at the bedside. ROS: Unobtainable due to patient's mental state. Reason For Visit: LEFT ACUTE ARTERIAL ISCHEMIC STROKE,MCA, Physical Exam Vital Signs: Temp Pulse Resp BP Pulse Ox 98.4 F 69 15 144/75 H 94 04/24/17 11:45 04/24/17 11:45 04/24/17 11:45 04/24/17 11:45 04/24/17 11:45 Intake & Output 04/23/17 04/24/17 04/25/17 06:59 06:59 06:59 Intake Total 2355 2240 0 Output Total 920 1700 400 Balance 1435 540 -400 Weight 86.2 kg 78.8 kg General: Well-developed, well-nourished, moderately obese elderly female currently lying in bed in no acute distress. She makes several efforts to communicate but is largely nonverbal, with occasional grunts, "yeah" or "nah" as a response. HEENT: NG tube in place, trachea midline, no obvious facial asymmetry, tongue deviates slightly to the left on protrusion. Respiratory: Lungs are clear to auscultation bilaterally and she is in no respiratory distress. Cardiac: Regular rate and rhythm with a normal S1, S2 no appreciable murmur. Abdomen: Soft with doughy consistency, no grimace or evidence of pain on deep palpation, bowel sounds present throughout. Extremities: Trace edema of the bilateral ankles, muscle tone is normal. Neuro: Expressive aphasia as noted above; right hemiplegia noted that she is able to move her right ankle and foot and able to district service manager on the right there is a noticeable decrease in strength and range of motion compared to the left- however this is reportedly improved from previous. Skin: Warm, dry, no obvious rash. Results Laboratory Results: 04/23/17 05:00 04/24/17 02:10 Urine Color YELLOW Urine Appearance CLEAR Urine pH 5.0 Ur Specific [place] 1.016 Urine Protein NEGATIVE Urine Glucose (UA) NEGATIVE Urine Ketones 80 H Urine Blood NEGATIVE Urine Nitrite NEGATIVE Ur Leukocyte Esterase TRACE H Urine WBC (Auto) 6 Urine RBC (Auto) 3 Assessment & Plan - Diagnosis (1) Left acute arterial ischemic stroke, MCA (middle cerebral artery) Is this a current diagnosis for this admission?: Yes Plan: With right hemiplegia and expressive aphasia. Continue physical, occupational, speech therapy. Continue aspirin, statin and blood pressure control. (2) Atrial fibrillation with RVR Is this a current diagnosis for this admission?: Yes Plan: Converted with sotalol; continue anticoagulation. Case discussed with Dr. Fowler. (3) DMII (diabetes mellitus, type 2) Qualifiers: Diabetes mellitus complication status: with unspecified complications Diabetes mellitus watermaster insulin use: without watermaster use Qualified Code( s): E11.8 - Type 2 diabetes mellitus with unspecified complications Is this a current diagnosis for this admission?: Yes Plan: Poorly controlled with hemoglobin A1c of 9.5. Continue sliding scale insulin. (4) UTI (urinary tract infection) Qualifiers: Urinary tract infection type: acute cystitis Hematuria presence: without hematuria Qualified Code(s): N30.00 - Acute cystitis without hematuria Is this a current diagnosis for this admission?: Yes Plan: Secondary to pansensitive E. coli. Continue Rocephin. - Time Time Spent with patient: 35 or more minutes Medications reviewed and adjusted accordingly: Yes - Plan Summary Plan Summary: Will need rehab placement. Case discussed with family at the bedside. Remove NG tube if she tolerates change in her diet today. She may be ready for transfer to rehab as early as tomorrow.
--- NOTE | 2017-04-24 15:22 | ST Inp Modified Barium Swallow ---
Medical Diagnosis - Medical Diagnoses Medical Diagnosis Description & ICD-10 Code(s): CVA, dysphagia Inpatient [facility] [place] - General Date: 04/24/17 Date of Onset: 04/20/17 - History History Obtained From: Other - EMR -: Medical - ST reviewed physician notes, significant for: 04/20/17 admission with TIA & UTI, worsening of acute stroke, acute decompensation in ED. MRI found let acute arterial ischemic stroke of middle cerebral artery. Patient now presents with right sided weakness, aphasia, dysphagia, diabetes, UTI, & atrial fibrillation with RVR. Patient initially passed swallow screen but when repeated patient failed. Currently using NG tube for nutrition/hydration. Some improvements noted at bedside with dysphagia treatment. Medications: Medications Reviewed Allergies: No known allergies - Subjective Current Nutritional Means: NG Current PO Diet: N/A (NPO) Current Symptoms: Coughing Pain: Patient reports, 0/5 - Objective Assessment: Upright, Left Lateral - Food Trials Food Trials Used: Thin liquids, Honey-thickened liquids, [place] thick liquids, Pureed The Patient: Required Assist, fed by ST, via cup, via spoon, via straw - Assessment Labial Function: Within Normal Limits Lingual Function: Within Normal Limits Mandibular Function: Within Normal Limits Dentition: Edentulous Laryngeal Function: Weak Cough, no volitional swallow - Pharyngeal Stage Initiation of Pharyngeal Stage: Normal Decreased Laryngeal Elevation: Yes Reduced Velo-Pharyngeal Closure: no Reduced Pressure Generation: No Reduced Tongue Base Retraction: Yes - piecemeal swallowing Pre-Swallowing Pooling in Valleculae: Mild Pre-Swallowing Pooling in Pyriforms: None Reduced Thyro-Hyiod Approximation: Yes Reduced Epiglottic Excursion: No Reduced Pharyngeal Peristalsis: No Post Swallow Residuals in Valleculae: Mild Pahryngeal Stage Comments: Patient demonstrated reduced strength of swallow, resulting in aspiration of thin liquids. Functional management of puree and honey thick textures. Significant oral holding of food, as well as decreased oral prep phase, resulting in very small amounts being accepted during the study. Piecemeal degluttition seen for all textures, liquid and solid. - Impression/Summary Laryngeal Penetration: Yes, Deep, Delayed cough, during swallow Tracheal Aspiration: yes - on thin liquid trial, deep, delayed cough Productive Cough: No - weak cough Effective Clearing: no Compensatory Strategies: Difficulty noted following directions, reduced efficacy of strategies. Patient Presents With: Oral stage dysphagia - moderate, Pharyngeal stage dysph. - moderate Risk of Aspiration: Moderate Risk of Nutritional Compromise: Moderate Risk Due To: aspiration of liquids - Recommendations Solid Diet Recommendations: Pureed Liquid Diet Recommendations: Honey-Thick Strict Aspitarion Precautions: Yes Dysphagia Therapy with SIGN BUILDER SUPERVISOR: Yes, Inpatient Recommended Techniques: Fully Upright During Meal, Small Bites and Sips Supervision: Constant, requires assistance - Time Total Time: 20 Total Timed Minutes: 20
--- NOTE | 2017-04-24 18:59 | RADIOLOGY REPORT (SQ) ---
EXAM DESCRIPTION: SANTIAGO SWALLOW COMPLETED DATE/TIME: 04/24/2017 9:14 am REASON FOR STUDY: CVA, signs of aspiraiton A40.9 STREPTOCOCCAL SEPSIS, UNSPECIFIED I48.1 PERSISTEN T ATRIAL FIBRILLATION R01.1 CARDIAC MURMUR, UNSPECIFIED COMPARISON: None. TECHNIQUE: Videofluoroscopic swallowing examination was performed in conjunction with speech patholo gy. Videofluoroscopic imaging was obtained and reviewed and these are the findings: RADIATION DOSE: Fluoro time 3.27 minutes 1 images saved to PACS. LIMITATIONS: None FINDINGS: The patient was brought into the fluoro room and placed upright on a modified barium swall ow chair. The patient was then given multiple consistencies mixed with barium to swallow under live fluoroscopic video guidance. According to the Speech Pathologist there was rick aspiration seen wit h thin barium. All other consistencies were swallowed without incident. Please refer to the speech p athology report for further details. IMPRESSION: RICK ASPIRATION WITH THIN BARIUM.PLEASE SEE SPEECH PATHOLOGIST REPORT FOR OTHER FINDING S AND RECOMMENDATIONS. COMMENT: None Quality ID [id number]: Final reports for procedures using fluoroscopy that document radiation exposure annemarie junior, or exposure time and number of fluorographic images (if radiation exposure indices are not avail able) TECHNICAL DOCUMENTATION: JOB ID: [id number] [employer]- All Rights Reserved
[2017-04-24] MEDS: SIMVASTATIN 40 MG TABLET NG SCH (23:35)
[2017-04-24] MEDS: WARFARIN SODIUM 2 MG TABLET PO SCH (23:36)
[2017-04-25 05:24] LABS: PROTHROMBIN TIME 14.4 SEC (11.4-15.4)
[2017-04-25] MEDS: ASPIRIN 81 MG TABLET, CHEWABLE NG SCH (10:55)
[2017-04-25] MEDS: FAMOTIDINE 20 MG TABLET NG SCH ×2 (10:55→21:48)
[2017-04-25] MEDS: SOTALOL HCL 80 MG TABLET PO SCH ×2 (10:56→21:47)
[2017-04-25] MEDS: CEFTRIAXONE 1 GM/D5W RTU 1 GM/50 ML RTUPB IV SCH (12:09)
[2017-04-25] MEDS: NORMAL SALINE 1000 ML 1,000 ML IV PRN ×2 (12:10→21:44)
[2017-04-25] MEDS ORDERED: WARFARIN SODIUM 2 MG TABLET PO SCH (15:01)
--- NOTE | 2017-04-25 15:11 | PDOC PROGRESS REPORT ---
Subjective Progress Note for:: 04/25/17 Subjective:: Patient admitted on the for acute onset altered mental status and was found to have a large MCA CVA, A. fib with RVR. After discussion with neurology by telephone, see other providers notes for details, decision was made to initiate anticoagulation but without heparin bridge or loading dose. She is currently receiving empiric aspirin and Coumadin. She is displayed difficulty swallowing and underwent a modified barium swallow, I spoke with speech therapy who indicated she struggled able to taking only take small bites and they can only clear her for honey thickened liquids with pured diet at this time. NG tube was placed previously so the medications could be administered that was discontinued 04/24/2017. Her atrial fibrillation converted with use of sotalol. I spoke with Dr. Fowler regarding ongoing treatment and he outlined pharmaceutical management with sotalol and anticoagulation with Coumadin. Nursing reports an episode of coughing and gagging resulting in bilious emesis 2 last night while feeding. Currently she is more interactive, trying to put together full sentences and will answer yes/no questions and appears consistent with her answers for me at the bedside. ROS: Unobtainable due to patient's mental state. Reason For Visit: LEFT ACUTE ARTERIAL ISCHEMIC STROKE,MCA, Physical Exam Vital Signs: Temp Pulse Resp BP Pulse Ox 97.8 F 71 16 150/91 H 97 04/25/17 12:02 04/25/17 14:00 04/25/17 12:02 04/25/17 12:02 04/25/17 12:02 Intake & Output 04/24/17 04/25/17 04/26/17 06:59 06:59 06:59 Intake Total 2240 1365 0 Output Total 1700 1900 300 Balance 540 -535 -300 Weight 78.8 kg 84.6 kg General: Well-developed, well-nourished, moderately obese elderly female currently lying in bed in no acute distress. Much more interactive today HEENT:trachea midline, no obvious facial asymmetry, tongue deviates slightly to the left on protrusion. Respiratory: Lungs are clear to auscultation bilaterally and she is in no respiratory distress. Cardiac: Regular rate and rhythm with a normal S1, S2 no appreciable murmur. Abdomen: Soft with doughy consistency, no grimace or evidence of pain on deep palpation, bowel sounds present throughout. Extremities: Trace edema of the bilateral ankles, muscle tone is normal. Neuro: Expressive aphasia as noted above; right hemiplegia improving as she is able to move her right ankle and foot and able to filler in on the right though there remains a noticeable decrease in strength and range of motion compared to the left-however this is reportedly improved from previous. Skin: Warm, dry, no obvious rash. Results Laboratory Results: 04/23/17 05:00 Impressions: Modified Barium Swallow 04/24/17 00:00 IMPRESSION: TERRY ASPIRATION WITH THIN BARIUM.PLEASE SEE SPEECH PATHOLOGIST REPORT FOR OTHER FINDINGS AND RECOMMENDATIONS. Status: Imported from PACS Assessment & Plan - Diagnosis (1) Left acute arterial ischemic stroke, MCA (middle cerebral artery) Is this a current diagnosis for this admission?: Yes Plan: Improved but not back to baseline. With right hemiplegia and expressive aphasia. Continue physical, occupational, speech therapy. Continue aspirin, statin and blood pressure control. (2) Atrial fibrillation with RVR Is this a current diagnosis for this admission?: Yes Plan: Resolved. Converted with sotalol; increase anticoagulation to a goal INR between 2 and 3. Case discussed with Dr. Fowler. 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 coli. Continue Rocephin. - Time Time Spent with patient: 35 or more minutes Medications reviewed and adjusted accordingly: Yes Anticipated discharge: SNF Within: within 24 hours - Plan Summary Plan Summary: She was reevaluated by speech therapy today and did not demonstrate any decline in her swallow function, in fact recommending a change from honey thickened to nectar thickened liquids so there is actually some improvement. I suspect the episode of emesis last night was from 2 rapid consumption of food. She and her family were counseled regarding risks of aspiration and proper techniques to avoid same. By morning there is no new events no complications I think she can transition over to [facility] where she is received about offer for ongoing rehab.
[2017-04-25] MEDS: SIMVASTATIN 40 MG TABLET NG SCH (21:47)
[2017-04-25] MEDS ORDERED: WARFARIN SODIUM 3 MG TABLET PO SCH (22:00)
[2017-04-26] MEDS: NORMAL SALINE 1000 ML 1,000 ML IV PRN (05:13)
[2017-04-26 05:44] LABS: PROTHROMBIN TIME 15.3 SEC (11.4-15.4)
--- NOTE | 2017-04-26 09:04 | PDOC TRANSFER SUMMARY ---
General - Admit/Disc Date/PCP Admission Date/Primary Care Provider: 04/22/17 16:54 Discharge Date: 04/26/17 - Discharge Diagnosis (1) Left acute arterial ischemic stroke, MCA (middle cerebral artery) Is this a current diagnosis for this admission?: Yes Summary: Rt hemiparesis, dysphagia, expressive aphasia and Rt hemineglect all improving with therapy. continue OT/PT/ST at the facility. continue ASA and blood pressure control (2) Atrial fibrillation with RVR Is this a current diagnosis for this admission?: Yes Summary: converted on Sotalol; continue warfarin with INR cks twice weekly for one month until INR between 2.0-3.0 (3) DMII (diabetes mellitus, type 2) Is this a current diagnosis for this admission?: Yes Summary: continue SSI per facility protocol (4) UTI (urinary tract infection) Is this a current diagnosis for this admission?: Yes Summary: 2/2 E Coli susc to N, continue Amoxil for another 7d (total 10d) (5) Anticoagulant long-term use Is this a current diagnosis for this admission?: Yes Summary: warfarin dosing per facility MD with outpt routine INR monitoring to goal >2<3 - Additional Information Resuscitation Status: Full Code Discharge Diet: Cardiac, Other (Comments) - pureed; nectar thick liquids Discharge Activity: Supervised Activity Prescriptions: Amoxicillin Trihydrate [Amoxil 500 mg Capsule] 500 mg PO TID #21 cap Home Medications: Amoxicillin Trihydrate [Amoxil 500 mg Capsule] 500 mg PO TID #21 cap 04/26/17 Aspirin [Aspirin 81 mg Chewable Tablet] 324 mg NG DAILY tab.chew 04/26/17 Docusate Sodium [Colace 100 mg Capsule] 100 mg PO BIDP PRN capsule 04/26/17 Famotidine [Pepcid 20 mg Tablet] 20 mg NG Q12 tablet 04/26/17 Insulin Regular, Human [Humulin R (Reg) Insulin 100 unit/mL] 0 - 12 unit SUBCUT Q6HP PRN unit 04/26/17 Magnesium Hydroxide [Milk of Magnesia 30 ml Udcup] 30 ml NG HSP PRN udc Simvastatin [Zocor 40 mg Tablet] 40 mg NG QHS tablet 04/26/17 Sotalol HCl [Betapace 80 mg Tablet] 40 mg PO Q12 tablet 04/26/17 Warfarin Sodium [Coumadin 3 mg Tablet] 3 mg PO QHS tablet 04/26/17 History of Present Illness Admission Date/PCP: 04/22/17 16:54 Patient complains of: AMS History of Present Illness: NALLELY ALLEN is a 66 year old female Patient was admitted to the ER with acute onset altered mental status unsure exactly the events that led up to the ER got conflicting reports. EMS witnessed TIA-like symptoms. According to the ER nurse patient was back to her baseline however when I came to see the patient during admission she did not seem appropriate like someone who may have had a stroke was going to bring her in the rule out CVA. Prior to patient being transported to the floor she had A. fib with RVR rate 160s. I was called back down to the ER to assess patient. She was altered, slurred speech, having expressive aphasia able to answer questions appropriately however someone that appears to be having a stroke. CT scan was negative for acute bleed. Patient was ordered an MRI she attained that prior to going to the floor which did show aLeft insular cortex relatively focal punctuate regions reactive diffusion may represent a recent tiny area MCA distribution infarct. Possible left MCA suspected. A. fib patient was started on a Cardizem drip with bolus of 125 titrated up to keep blood pressure greater than 140 systolic. Patient also was found to be febrile after having A. fib with RVR temp was 101.2 she did have some emesis in the ER. Patient was transported to ICU for close monitoring. Dr. Dodson was aware and came to see the patient with me. Initially patient's sister was in the room during my first initial visit to the ER. States she has not seen her sister in several years prior to just a few weeks ago. Unsure of her past medical history. No other family present patient is not able to give a past medical history, social history. Family history was positive for CVA mother and diabetes and cancer of the bones father. Otherwise sister is unaware of patient receiving any ongoing medical evaluation up until just a few weeks. Hospital Course Hospital Course: she was found to have MCA CVA likely 2/2 to afib. She had a dense Rt hemiparesis and Rt hemineglect with expressive aphasia but is responding to PT/ OT/ST. she underwent MBS and diet restrictions prescribed though she is showing near daily improvement with ongoing therapy and will need to revisit these restrictions and advance diet as clinically indicated in the near future I suspect. Her afib converted and maintained in NSR with sotalol. she is started on coumadin without heparin bridge or loading dose due to concerns for hemorrhagic conversion and will need routine INR monitoring and dose adjustment per usual protocol for Afib by her PCP. BPs better controlled on current regimen. overall her condition has improved beyond the need for inpatient treatment and arrangements made for transfer to [place] for ongoing rehab and treatment. she is stable for transfer at this time. family at bedside in agreement and express no concerns about going at this time. Physical Exam Vital Signs: Temp Pulse Resp BP Pulse Ox 98.1 F 60 20 166/76 H 95 04/26/17 07:58 04/26/17 07:58 04/26/17 07:58 04/26/17 07:58 04/26/17 07:58 Intake & Output 04/25/17 04/26/17 04/27/17 06:59 06:59 06:59 Intake Total 1365 2200 Output Total 1900 1550 Balance -535 650 Weight 84.6 kg 82.2 kg General: Well-developed, well-nourished, moderately obese elderly female currently lying in bed in no acute distress. Much more interactive today HEENT:trachea midline, no obvious facial asymmetry, tongue deviates slightly to the left on protrusion. Respiratory: Lungs are clear to auscultation bilaterally and she is in no respiratory distress. Cardiac: Regular rate and rhythm with a normal S1, S2 no appreciable murmur. Abdomen: Soft with doughy consistency, no grimace or evidence of pain on deep palpation, bowel sounds present throughout. Extremities: Trace edema of the bilateral ankles, muscle tone is normal. 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 Skin: Warm, dry, no obvious rash. Results Laboratory Results: 04/23/17 05:00 Impressions: Carotid Doppler Study 04/21/17 00:00 IMPRESSION: Atherosclerotic change at the carotid bifurcations bilaterally. Velocities suggest against flow significant proximal ICA stenosis bilaterally Head CT 04/21/17 00:00 IMPRESSION: Extensive small vessel disease. No acute hemorrhage. Tiny focus of acute ischemia seen on MRI 04/20/2017 diffusion-weighted images is not apparent by CT EVIDENCE OF ACUTE STROKE: NO. Head CTA 04/21/17 00:00 IMPRESSION: No CT angio evidence of flow significant carotid bifurcation stenosis, vertebral artery or carotid artery dissection in the neck. No [place] of [place] stenosis, vascular malformation, or aneurysm Extensive intracranial white matter chronic small vessel disease with old right deep periventricular white matter infarct extending into the basal ganglia Head MRI 04/21/17 00:00 IMPRESSION: Since the prior MRI 04/20/2017, patient has developed acute ischemic change in the left MCA distribution of the left frontal perisylvian cortex and subcortical white matter, and insular cortex. No acute superimposed hemorrhage. No significant local mass effect. Stable extensive small vessel chronic white matter disease elsewhere in the hemispheres EVIDENCE OF ACUTE STROKE: NO. Neck CTA 04/21/17 00:00 IMPRESSION: No CT angio evidence of flow significant carotid bifurcation stenosis, vertebral artery or carotid artery dissection in the neck. No [place] of [place] stenosis, vascular malformation, or aneurysm Extensive intracranial white matter chronic small vessel disease with old right deep periventricular white matter infarct extending into the basal ganglia KUB X-Ray 04/21/17 10:26 IMPRESSION: Nasogastric tube tip and side port in the stomach Chest X-Ray 04/22/17 23:42 IMPRESSION: Enteric tube. 2010 [employer]- All Rights Reserved Modified Barium Swallow 04/24/17 00:00 IMPRESSION: TERRY ASPIRATION WITH THIN BARIUM.PLEASE SEE SPEECH PATHOLOGIST REPORT FOR OTHER FINDINGS AND RECOMMENDATIONS. Transfer Plan - Disposition Transfer Plan: to [place] for ongoing treatment. - Time Spent with Patient Time spent with patient: Less than 30 Minutes Qualifiers PATEINT BEING DISCHARGED WITH ANY OF THE FOLLOWING DIAGNOSIS?: Stroke VTE patient discharged on overlapping Therapy?: Yes Stroke Pt being discharged on Anti-thrombolytic therapy?: Yes Stroke Pt being discharged on Anti-coagulation therapy?: Yes
[2017-04-26] MEDS: ASPIRIN 81 MG TABLET, CHEWABLE NG SCH (09:59)
[2017-04-26] MEDS: FAMOTIDINE 20 MG TABLET NG SCH (10:00)
[2017-04-26] MEDS: SOTALOL HCL 80 MG TABLET PO SCH (10:00)
[2017-04-26 13:40] VITALS: BP 163/83
== END 2017-04-26 13:20 | DRG 65 ==
LOC: ER 08:51 → EH 11:18 → UNDOADMOB 11:18 → ICU 16:20 → 3S 04-21 19:25 → OBSVTOIN 04-22 16:54
PROVIDERS: ADMIT Hospitalist; ATTEND Hospitalist
DX: I63.312 Cerebral infarction due to thrombosis of left middle cerebral artery (principal); G81.93 Hemiplegia, unspecified affecting right nondominant side; N30.00 Acute cystitis without hematuria; I48.0 Paroxysmal atrial fibrillation; I10 Essential (primary) hypertension; E11.8 Type 2 diabetes mellitus with unspecified complications; R47.81 Slurred speech; R47.01 Aphasia; I45.81 Long QT syndrome; E78.5 Hyperlipidemia, unspecified; B96.20 Unspecified Escherichia coli [E. coli] as the cause of diseases classified elsewhere; E66.9 Obesity, unspecified; Z68.36 Body mass index [BMI] 36.0-36.9, adult; Z87.891 Personal history of nicotine dependence; Z79.01 Long term (current) use of anticoagulants; Z79.82 Long term (current) use of aspirin; Z79.4 Long term (current) use of insulin; Z79.899 Other long term (current) drug therapy; Z82.3 Family history of stroke; Z83.3 Family history of diabetes mellitus; Z80.8 Family history of malignant neoplasm of other organs or systems
CPT/HCPCS: 36415; 51702; 70450; 70496; 70498; 70551; 70553; 71010; 74000; 74230; 80048; 80053; 80061; 80307; 81001; 82550; 82553; 82962; 83036; 84484; 85025; 85027; 85610; 85730; 87040; 87086; 87088; 87186; 93005; 93010; 93306; 93880; 96365; 99285; G8978-GP; G8979-GP; G8987-GO; G8988-GO; G8996-GN; G8997-GN; J0696; J1200; J1644; J1815; J1940; J3490; J7030; L1902

== ENCOUNTER 2018-01-29 10:35 | Emergency (ER) | payer MEDICARE ==
--- NOTE | 2018-01-29 10:55 | ER Document Report ---
ED General - General Stated Complaint: UNRESPONSIVE Time Seen by Provider: 01/29/18 10:41 Mode of Arrival: Medic Information source: Relative Cannot obtain history due to: Altered mental status Notes: 67-year-old female brought to the emergency department by EMS for possible seizure. Patient was sitting at a table eating when her noticed her become unresponsive and have tonic-clonic movements. This lasted for about a minute. denies a history of seizures. Says that she has had previous strokes in the past with residual right upper and lower extremity deficits. Patient was noted to be postictal by EMS in route to the hospital. No antiepileptic medication was given. Patient does have a history of diabetes. On metformin. Blood sugar noted to be within normal limits per EMS. TRAVEL OUTSIDE OF THE [place] IN LAST 30 DAYS: No - HPI Onset: Just prior to arrival Onset/Duration: Sudden Quality of pain: No pain Severity: None Pain Level: Denies Associated symptoms: None Exacerbated by: Denies Relieved by: Denies Similar symptoms previously: No Recently seen / treated by doctor: No - Related Data Allergies/Adverse Reactions: No Known Allergies Allergy (Verified 04/20/17 09:36) Past Medical History - General Information source: Emergency Med Personnel Cannot obtain history due to: Altered mental status - Social History Smoking Status: Unknown if Ever Smoked Family History: CVA, DM, Hyperlipidemia, Hypertension, Malignancy - Past Medical History Cardiac Medical History: Reports: Hx Hypertension Endocrine Medical History: Reports: Hx Diabetes Mellitus Type 2 Renal/ Medical History: Denies: Hx Peritoneal Dialysis - Immunizations Hx Diphtheria, Pertussis, Tetanus Vaccination: No Review of Systems - Review of Systems -: Yes ROS unobtainable due to patient's medical condition Physical Exam - Vital signs Vitals: Resp 12 01/29/18 10:35 - Notes Notes: PHYSICAL EXAMINATION: GENERAL: Well-appearing, well-nourished and in no acute distress. HEAD: Atraumatic. EYES: Pupils equal round and reactive to light, extraocular movements intact, conjunctiva are normal. ENT: Nares patent, oropharynx clear without exudates. Moist mucous membranes. NECK: Normal range of motion, supple without lymphadenopathy LUNGS: Breath sounds clear to auscultation bilaterally and equal. No wheezes rales or rhonchi. HEART: Regular rate and rhythm without murmurs ABDOMEN: Soft, nontender, nondistended abdomen. No guarding, no rebound. No masses appreciated. Female : deferred Musculoskeletal: Normal range of motion, no pitting or edema. No cyanosis. NEUROLOGICAL: AOx1. Patient only orientated to person. Cranial nerves grossly intact. Speech normal. Moving all 4 extremities. RUE weakness noted. PSYCH: unable to assess. SKIN: Warm, Dry, normal turgor, no rashes or lesions noted. Course - Re-evaluation Re-evalutation: 01/29/18 11:21 EKG: Ventricular rate 130, QRS duration 78, QTc 471, atrial fibrillation. EKG compared to previous done on 04/24/17 01/29/18 12:55 EKG: Ventricular rate 77, QRS duration 78, QTc 381, atrial fibrillation. 01/29/18 15:16 Patient had 2 additional seizures while in the ED. Given 500mg of keppra. On a cardizem drip for her A. Fib rate control. Patient is on Eliquis per . Head CT was negative. Labs are WNL. I spoke with Dr. Carrera at [facility]. He's agreeable with transfer. Patient currently stable. - Vital Signs Vital signs: Temp Pulse Resp BP Pulse Ox 24 H 109/79 99 01/29/18 17:11 01/29/18 17:11 01/29/18 17:11 - Laboratory Result Diagrams: 01/29/18 10:43 01/29/18 10:43 Laboratory results interpreted by me: 01/29/18 01/29/18 10:43 14:40 Potassium 5.3 H Urine Ketones TRACE H Urine Ascorbic Acid 40 H Salicylates < 1.0 L Acetaminophen < 10 L Discharge - Discharge Clinical Impression: Seizure Atrial fibrillation Qualifiers: Atrial fibrillation type: chronic Qualified Code(s): I48.2 - Chronic atrial fibrillation Condition: Good Disposition: [facility]
[2018-01-29 11:00] LABS: ABSOLUTE BASOPHILS # (AUTO) 0.1 10^3/uL (0.0-0.2); ABSOLUTE EOSINOPHILS # (AUTO) 0.3 10^3/uL (0.0-0.6); ABSOLUTE LYMPHOCYTES (AUTO) 2.7 10^3/uL (0.5-4.7); ABSOLUTE MONOCYTES (AUTO) 0.3 10^3/uL (0.1-1.4); ABSOLUTE NEUT (AUTO) 6.9 10^3/uL (1.7-8.2); BASOPHILS % (AUTO) 1.2 % (0-2); EOSINOPHILS % (AUTO) 3.4 % (0-6); HEMATOCRIT 40.6 % (36.0-47.0); LYMPHOCYTES % (AUTO) 25.9 % (13-45); MEAN CORPUSCULAR HGB CONC 34.5 g/dL (32.0-36.0); MEAN CORPUSCULAR VOLUME 90 fl (80-97); MONOCYTES % (AUTO) 3.1 % (3-13); PLATELET COUNT 295 10^3/uL (150-450); RED BLOOD COUNT 4.51 10^6/uL (3.72-5.28); RED CELL DISTRIBUTION WIDTH 12.8 % (11.5-14.0); SEGMENTED NEUTROPHILS % (AUTO) 66.4 % (42-78); TOTAL CELLS COUNTED % (AUTO) 100 %; WHITE BLOOD COUNT 10.4 10^3/uL (4.0-10.5)
[2018-01-29] MEDS ORDERED: DILTIAZEM HCL INJ 25 MG/5 ML VIAL IV ONE (11:15)
[2018-01-29] MEDS ORDERED: DILTIAZEM HCL/D5W 125 MG/125 ML RTUINJ IV PRN (11:15)
[2018-01-29 11:25] LABS: ACETAMINOPHEN < 10 ug/mL (10-30); ALANINE AMINOTRANSFERASE 22 U/L (9-52); ALBUMIN 4.4 g/dL (3.5-5.0); ALCOHOL < 10 mg/dL (NONE DETECTED); ALKALINE PHOSPHATASE 44 U/L (38-126); ANION GAP 10 (5-19); ASPARTATE AMINO TRANSFERASE 25 U/L (14-36); BILIRUBIN,DIRECT 0.4 mg/dL (0.0-0.4); BILIRUBIN,TOTAL 0.6 mg/dL (0.2-1.3); BLOOD UREA NITROGEN 11 mg/dL (7-20); CALCIUM 9.7 mg/dL (8.4-10.2); CARBON DIOXIDE 24 mmol/L (22-30); CHLORIDE 103 mmol/L (98-107); GLUCOSE 83 mg/dL (75-110); POTASSIUM 5.3 mmol/L (3.6-5.0); SODIUM 137.2 mmol/L (137-145); TOTAL PROTEIN 7.4 g/dL (6.3-8.2)
[2018-01-29 11:26] LABS: SALICYLATE < 1.0 mg/dL (2.0-20.0)
--- NOTE | 2018-01-29 12:01 | RADIOLOGY REPORT (SQ) ---
EXAM DESCRIPTION: CT HEAD WITHOUT COMPLETED DATE/TIME: 01/29/2018 11:41 am REASON FOR STUDY: seizure COMPARISON: April 2017 TECHNIQUE: Axial images acquired through the brain without intravenous contrast. Images reviewed wi th bone, brain and subdural windows. Additional sagittal and coronal reconstructions were generated. Images stored on PACS. All CT scanners at this facility use dose modulation, iterative reconstruction, and/or weight based d osing when appropriate to reduce radiation dose to as low as reasonably achievable (ALARA). [facility]: Dose Right [facility]: CareDose [facility]: Dose Right [facility]: Teradose 4D [facility]: Smart [employer] RADIATION DOSE: CT Rad equipment meets quality standard of care and radiation dose reduction techniq ues were employed. CTDIvol: 53.2 mGy. DLP: 1044 mGy-cm.mGy. LIMITATIONS: None. FINDINGS: VENTRICLES: Normal size and contour CEREBRUM: No masses. No hemorrhage. No midline shift. Areas of low density in the white matter mos t likely due to chronic micro-vascular ischemic change. No evidence for acute infarction. CEREBELLUM: No masses. No hemorrhage. No alteration of density. No evidence for acute infarction. EXTRAAXIAL SPACES: Age-related involutional change. No fluid collections. No masses. ORBITS AND GLOBE: No intra- or extraconal masses. Normal contour of globe without masses. CALVARIUM: No fracture. PARANASAL SINUSES: No fluid or mucosal thickening. SOFT TISSUES: No mass or hematoma. OTHER: No other significant finding. IMPRESSION: CHRONIC CHANGES OF ATROPHY AND MICROVASCULAR ISCHEMIA. NO ACUTE PROCESS. EVIDENCE OF ACUTE STROKE: NO. TECHNICAL DOCUMENTATION: JOB ID: [id number] Quality ID # [id number]: Final reports with documentation of one or more dose reduction techniques (e.g., Au tomated exposure control, adjustment of the mA and/or kV according to patient size, use of iterative reconstruction technique) 2010 [employer]- All Rights Reserved Reading location - IP/workstation name: [email or web address]
--- NOTE | 2018-01-29 12:10 | RADIOLOGY REPORT (SQ) ---
EXAM DESCRIPTION: CHEST 2 VIEWS COMPLETED DATE/TIME: 01/29/2018 11:52 am REASON FOR STUDY: altered mental status COMPARISON: None. EXAM PARAMETERS: NUMBER OF VIEWS: two views TECHNIQUE: Digital Frontal and Lateral radiographic views of the chest acquired. RADIATION DOSE: NA LIMITATIONS: Patient has made a shallow inspiration. FINDINGS: LUNGS AND PLEURA: No opacities, masses or pneumothorax. No pleural effusion. MEDIASTINUM AND HILAR STRUCTURES: No masses or contour abnormalities. HEART AND VASCULAR STRUCTURES: There is some prominence of the cardiac silhouette which may be in par t related to the shallow inspiration. BONES: No acute findings. HARDWARE: None in the chest. OTHER: No other significant finding. IMPRESSION: NO ACUTE RADIOGRAPHIC FINDING IN THE CHEST. TECHNICAL DOCUMENTATION: JOB ID: [id number] [employer]- All Rights Reserved Reading location - IP/workstation name: [email or web address]
[2018-01-29] MEDS ORDERED: LEVETIRACETAM 500 MG TABLET PO ONE (14:55)
[2018-01-29 15:20] LABS: APPEARANCE,URINE SLIGHTLY-CLOUDY; BILIRUBIN,URINE NEGATIVE (NEGATIVE); GLUCOSE, URINE NEGATIVE (NEGATIVE); KETONES,URINE TRACE mg/dL (NEGATIVE); LEUKOCYTE ESTERASE,URINE NEGATIVE (NEGATIVE); NITRITE,URINE NEGATIVE (NEGATIVE); PROTEIN,URINE NEGATIVE (NEGATIVE); URINE SPECIFIC GRAVITY 1.012; UROBILINOGEN,URINE NEGATIVE mg/dL (<2.0)
[2018-01-29 15:21] LABS: COLOR,URINE YELLOW
[2018-01-29 16:04] LABS: URINE AMPHETAMINES SCREEN NEGATIVE; URINE BARBITURATES SCREEN NEGATIVE; URINE BENZODIAZEPINES SCREEN NEGATIVE; URINE COCAINE SCREEN NEGATIVE; URINE MARIJUANA (THC) SCREEN NEGATIVE; URINE METHADONE SCREEN NEGATIVE; URINE PHENCYCLIDINE SCREEN NEGATIVE
[2018-01-29] MEDS ORDERED: LEVETIRACETAM 500 MG/NACL-ISO 500 MG/100 ML RTUPB IV ONE (16:16)
[2018-01-29 16:44] VITALS: BP 109/79
--- NOTE | 2018-01-31 20:56 | EKG REPORT ---
SEVERITY:- ABNORMAL ECG - ATRIAL FIBRILLATION LEFT VENTRICULAR HYPERTROPHY INFERIOR INFARCT, AGE INDETERMINATE EXTENSIVE ANTERIOR INFARCT, AGE INDETERMINATE : Confirmed by: Jackie Fowler MD 31-Jan-2018 20:55:33
--- NOTE | 2018-01-31 20:57 | EKG REPORT ---
SEVERITY:- ABNORMAL ECG - ATRIAL FIBRILLATION LEFT VENTRICULAR HYPERTROPHY INFERIOR INFARCT, AGE INDETERMINATE EXTENSIVE ANTERIOR INFARCT, AGE INDETERMINATE : Confirmed by: Jackie Fowler MD 31-Jan-2018 20:55:54
== END 2018-01-29 17:30 | disposition short-term general hospital (02) ==
LOC: ER 10:35
DX: R56.9 Unspecified convulsions (principal); I48.2 Chronic atrial fibrillation; I10 Essential (primary) hypertension; E11.9 Type 2 diabetes mellitus without complications; Z79.02 Long term (current) use of antithrombotics/antiplatelets
CPT/HCPCS: 93005; 99285; 51702; 96365; 96366; 96368; 36415; 82962; 80307 ×4; 85025; 80053; 81001; 71046; 70450; 93010; J3490 ×2; J1953

== ENCOUNTER → 2018-09-24 | Outpatient (CLI) | payer MEDICARE, OTHER ==
--- NOTE | 2018-09-24 13:55 | WOMENS IMAGING REPORT ---
EXAM DESCRIPTION: 3D SCREENING MAMMO BILAT COMPLETED DATE/TIME: 09/24/2018 10:50 am REASON FOR STUDY: Z12.31 ROUTINE 3D BILATERAL SCREENING Z12.31 ENCNTR SCREEN MAMMOGRAM FOR MALIGNAN T NEOPLASM OF [place] COMPARISON: None. EXAM PARAMETERS: Standard craniocaudal and mediolateral oblique views of each breast recorded using digital acquisition and breast tomosynthesis. Read with the assistance of CAD. .[facility] - Agg[employer]ate Knowledge [employer] Examiner Version 9.2 LIMITATIONS: None. FINDINGS: RIGHT BREAST MASSES: Smooth mass lower inner quadrant posterior 3rd. 2 smooth masses upper outer quadrant posteri or 3rd. CALCIFICATIONS: No new or suspicious calcifications. ARCHITECTURAL DISTORTION: None. DEVELOPING DENSITY: None. ASYMMETRY: None noted. OTHER: No other significant findings. LEFT BREAST MASSES: No suspicious masses. CALCIFICATIONS: No new or suspicious calcifications. ARCHITECTURAL DISTORTION: None. DEVELOPING DENSITY: None. ASYMMETRY: None noted. OTHER: No other significant findings. IMPRESSION: Probable cysts right breast. Assessment: 0 Incomplete: Needs Additional Imaging Evaluation and/or prior Mammograms for Comparison. BREAST DENSITY: a. The breasts are almost entirely fatty. BIRAD: 0 Incomplete: Needs Additional Imaging Evaluation and/or prior Mammograms for Comparison. RECOMMENDATION: RECOMMENDED FOLLOW-UP: Ultrasound right breast. The patient will be contacted for additional imaging. COMMENT: The patient has been notified of the results by letter per [place] requirements. Additional no tification policies are in place for contacting patient with suspicious or incomplete findings. Quality ID #[id number]: The [employer] recommends an annual screening mammogram for women aged 40 years or over. This facility utilizes a reminder system to ensure that all patients receive reminder letters, and/or direct phone calls for appointments. This includes reminders for routine scr eening mammograms, diagnostic mammograms, or other Breast Imaging Interventions when appropriate. Th is patient will be placed in the appropriate reminder system. TECHNICAL DOCUMENTATION: FINDING NUMBER: (1) ASSESSMENT: (1) JOB ID: [id number] [employer]- All Rights Reserved Reading location - IP/workstation name: [email or web address]
== END ==
LOC: WI 10:06
PROVIDERS: ATTEND Student in an Organized Health Care Education/Training Program
DX: Z12.31 Encounter for screening mammogram for malignant neoplasm of breast (principal)
CPT/HCPCS: 77063; 77067

== ENCOUNTER → 2018-10-13 | Outpatient (CLI) | payer MEDICARE, OTHER ==
--- NOTE | 2018-10-13 11:42 | WOMENS IMAGING REPORT ---
EXAM DESCRIPTION: U/S BREAST UNILAT LIMITED COMPLETED DATE/TIME: 10/13/2018 10:16 am REASON FOR STUDY: RT BREAST MASS N63.14 N63.14 UNSPECIFIED LUMP IN THE RIGHT BREAST, LOWER INNER QU A COMPARISON: 09/24/2018. TECHNIQUE: Real-time and static grayscale imaging performed of the right breast targeted to the area of clinical/mammographic concern. Selected color Doppler images recorded. LIMITATIONS: None. FINDINGS: MASS: In the upper-outer breast, 9 o'clock location, there are small circumscribed lymph n odes measuring 2 mm and 5 x 7 mm. These have smooth margins with no distal shadowing. These have sm all fatty tiffany. No other solid or cystic masses identified. Normal glandular tissue. OTHER: No other significant finding. IMPRESSION: Small lymph nodes in the upper-outer breast. No other significant findings. No suspici ous masses. BIRAD: 2 Benign findings. RECOMMENDATION: RECOMMENDED FOLLOW-UP: Resume routine screening mammography. COMMENT: The [employer] (ACR) has developed recommendations for screening MRI of the breasts in certain patient populations, to be used in conjunction with mammography. Breast MRI s urveillance may be appropriate for women with more than 20% lifetime risk of developing breast cancer as determined by genetic testing, significant family history of the disease, or history of mantle r adiation for Hodgkins Disease. ACR Practice Guidelines 2008. TECHNICAL DOCUMENTATION: JOB ID: [id number] [employer]- All Rights Reserved Reading location - IP/workstation name: [email or web address]
== END ==
LOC: WI 09:35
PROVIDERS: ATTEND Student in an Organized Health Care Education/Training Program
DX: N63.11 Unspecified lump in the right breast, upper outer quadrant (principal)
CPT/HCPCS: 76642

== ENCOUNTER 2019-01-23 08:10 | Emergency (ER) | payer MEDICARE, OTHER ==
[2019-01-23 08:37] LABS: ABSOLUTE BASOPHILS # (AUTO) 0.1 10^3/uL (0.0-0.2); ABSOLUTE EOSINOPHILS # (AUTO) 0.2 10^3/uL (0.0-0.6); ABSOLUTE LYMPHOCYTES (AUTO) 2.7 10^3/uL (0.5-4.7); ABSOLUTE MONOCYTES (AUTO) 0.3 10^3/uL (0.1-1.4); ABSOLUTE NEUT (AUTO) 4.9 10^3/uL (1.7-8.2); BASOPHILS % (AUTO) 0.9 % (0-2); EOSINOPHILS % (AUTO) 2.3 % (0-6); HEMATOCRIT 39.5 % (36.0-47.0); HEMOGLOBIN 13.4 g/dL (12.0-15.5); LYMPHOCYTES % (AUTO) 32.6 % (13-45); MEAN CORPUSCULAR HEMOGLOBIN 29.4 pg (27.0-33.4); MEAN CORPUSCULAR HGB CONC 33.8 g/dL (32.0-36.0); MEAN CORPUSCULAR VOLUME 87 fl (80-97); MONOCYTES % (AUTO) 3.8 % (3-13); PLATELET COUNT 303 10^3/uL (150-450); RED BLOOD COUNT 4.55 10^6/uL (3.72-5.28); RED CELL DISTRIBUTION WIDTH 13.7 % (11.5-14.0); SEGMENTED NEUTROPHILS % (AUTO) 60.4 % (42-78); TOTAL CELLS COUNTED % (AUTO) 100 %; WHITE BLOOD COUNT 8.2 10^3/uL (4.0-10.5)
[2019-01-23 09:03] LABS: ALBUMIN 4.6 g/dL (3.5-5.0); ALKALINE PHOSPHATASE 70 U/L (38-126); ANION GAP 17 (5-19); ASPARTATE AMINO TRANSFERASE 26 U/L (14-36); BILIRUBIN,DIRECT 0.2 mg/dL (0.0-0.4); BILIRUBIN,TOTAL 0.7 mg/dL (0.2-1.3); BLOOD UREA NITROGEN 26 mg/dL (7-20); CALCIUM 9.8 mg/dL (8.4-10.2); CARBON DIOXIDE 19 mmol/L (22-30); CHLORIDE 105 mmol/L (98-107); GLUCOSE 120 mg/dL (75-110); POTASSIUM 4.2 mmol/L (3.6-5.0); TOTAL PROTEIN 7.6 g/dL (6.3-8.2)
[2019-01-23 09:04] LABS: ALCOHOL < 10 mg/dL (NONE DETECTED)
[2019-01-23] MEDS ORDERED: LEVETIRACETAM 500 MG TABLET PO ONE (09:24)
--- NOTE | 2019-01-23 09:29 | ER Document Report ---
ED Seizure - General Chief Complaint: Probable Seizure Stated Complaint: POSSIBLE SEIZURE Time Seen by Provider: 01/23/19 09:17 Primary Care Provider: DELILAH PETERS DO [Primary Care Provider] - Follow up as needed Mode of Arrival: Medic Information source: Patient, Relative - HPI Patient complains to provider of: History of seizures - pt has been out of her seizure meds for 4-5 days according to (Geno). Had grand mal seizure this am. EMS called and pt. transported here for further evaluation. Pt. initially post-ictal but alert and awake now. - Related Data Allergies/Adverse Reactions: No Known Allergies Allergy (Verified 04/20/17 09:36) Past Medical History - General Information source: Relative - Social History Smoking Status: Unknown if Ever Smoked Family History: CVA, DM, Hyperlipidemia, Hypertension, Malignancy Patient has suicidal ideation: No Patient has homicidal ideation: No - Past Medical History Cardiac Medical History: Reports: Hx Atrial Fibrillation, Hx Hypertension Endocrine Medical History: Reports: Hx Diabetes Mellitus Type 2 Renal/ Medical History: Denies: Hx Peritoneal Dialysis - Immunizations Hx Diphtheria, Pertussis, Tetanus Vaccination: No Review of Systems - Review of Systems Constitutional: No symptoms reported EENT: No symptoms reported Cardiovascular: No symptoms reported Respiratory: No symptoms reported Gastrointestinal: No symptoms reported Musculoskeletal: No symptoms reported Neurological/Psychological: See HPI, Seizure -: Yes All other systems reviewed and negative Physical Exam - Vital signs Vitals: Resp Pulse Ox 34 H 93 01/23/19 08:16 01/23/19 08:16 - General General appearance: Appears well, Alert In distress: None - HEENT Head: Normocephalic Pupils: PERRL Pharynx: Normal Neck: Normal - Respiratory Respiratory status: No respiratory distress Breath sounds: Normal - Cardiovascular Rhythm: Regular Heart sounds: Normal auscultation Murmur: No - Abdominal Inspection: Normal Tenderness: Nontender - Extremities General upper extremity: Normal inspection General lower extremity: Normal inspection - Neurological Neuro grossly intact: Yes Cognition: Normal Orientation: AAOx4 Speech: Normal Cranial nerves: Normal Motor strength normal: LUE, RUE, LLE, RLE Additional motor exam normals: 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 alert and oriented at time of d/c -- feels much better. Was given keppra in ED. Family will take her home - Vital Signs Vital signs: Temp Pulse Resp BP Pulse Ox 97.5 F 76 26 H 133/99 H 95 01/23/19 08:17 01/23/19 09:13 01/23/19 09:09 01/23/19 09:09 01/23/19 09:09 - Laboratory Result Diagrams: 01/23/19 08:24 01/23/19 08:24 Laboratory results interpreted by me: 01/23/19 01/23/19 08:21 08:24 Carbon Dioxide 19 L BUN 26 H Glucose 120 H POC Glucose 121 H Magnesium 1.5 L Discharge - Discharge Clinical Impression: Seizure Condition: Stable Disposition: HOME, SELF-CARE Additional Instructions: rest, take meds as prescribed, return if worse Referrals: DELILAH PETERS, [Primary Care Provider] - Follow up as needed
[2019-01-23 10:29] VITALS: BP 133/88
== END 2019-01-23 10:34 | disposition home or self-care (01) ==
LOC: ER 08:10
DX: R56.9 Unspecified convulsions (principal); Z79.899 Other long term (current) drug therapy; I48.91 Unspecified atrial fibrillation; I10 Essential (primary) hypertension; E11.9 Type 2 diabetes mellitus without complications
CPT/HCPCS: 36415; 82962; 80307; 83735; 85025; 80053; A9270; 99284

== ENCOUNTER 2020-04-21 10:43 | Emergency (ER) | payer MEDICARE, OTHER ==
--- NOTE | 2020-04-21 11:48 | ER Document Report ---
ED General - General Chief Complaint: Fall Stated Complaint: RIGHT FLANK PAIN Time Seen by Provider: 04/21/20 11:33 Primary Care Provider: DELILAH PETERS DO [Primary Care Provider] - Follow up as needed TRAVEL OUTSIDE OF THE [place] IN LAST 30 DAYS: No - HPI Notes: Patient is a 69-year-old female who presents to the emergency department for evaluation after a fall. She is not a very good historian. The patient states that she was getting out of a car on the passenger side. She slipped and fell down. She states that she hurt her flank, she points actually to her buttock region. She has been ambulatory since then. It happened about 3 or 4 hours ago. She has not taken anything for pain. She cannot give me a numerical scale for her pain. She denies hitting her head. No loss of consciousness. No neck or back pain. I asked her when the last time she checked her INR was, she states that she checks it every day. I asked her what it was and she said "it is good, it is good." Patient reports a history of CVA, denies any residual deficits. - Related Data Allergies/Adverse Reactions: No Known Allergies Allergy (Verified 04/20/17 09:36) Home Medications: List reviewed with patient Past Medical History - General Information source: Patient - Social History Smoking Status: Never Smoker Chew tobacco use (# tins/day): No Frequency of alcohol use: None Drug Abuse: None Family History: CVA, DM, Hyperlipidemia, Hypertension, Malignancy Patient has homicidal ideation: No - Past Medical History Cardiac Medical History: Reports: Hx Atrial Fibrillation, Hx Hypertension Neurological Medical History: Reports: Hx Cerebrovascular Accident Endocrine Medical History: Reports: Hx Diabetes Mellitus Type 2 Renal/ Medical History: Denies: Hx Peritoneal Dialysis - Immunizations Hx Diphtheria, Pertussis, Tetanus Vaccination: No Review of Systems - Review of Systems Constitutional: No symptoms reported EENT: No symptoms reported Cardiovascular: No symptoms reported Respiratory: No symptoms reported Gastrointestinal: No symptoms reported Genitourinary: No symptoms reported Musculoskeletal: See HPI Skin: No symptoms reported Neurological/Psychological: No symptoms reported Physical Exam - Vital signs Vitals: Temp 98.5 F 04/21/20 10:43 - Notes Notes: Vital signs reviewed, please refer to chart. Head is normocephalic, atraumatic. Pupils equal round, reactive to light. Neck is supple without meningismus. Heart is regular rate and rhythm. Lungs are clear to auscultation bilaterally. Abdomen is soft, nontender, normoactive bowel sounds throughout. Examination of the spine yields no midline tenderness or step-off. No paraspinal musculature tenderness is appreciated. She does have some minor tenderness over the SI joint on the right and overlying the muscles of the gluteal region. She has full passive and active range of motion of the right hip, although there is some minimal pain with internal rotation. Neurovascularly intact to the right lower extremity. Extremities without cyanosis, clubbing. Posterior calves are nontender. Peripheral pulses are equal. Skin is warm and dry. Patient is aw crystal, alert, neurological exam is nonfocal. Course - Re-evaluation Re-evalutation: 04/21/20 15:39 Patient presents emergency department for evaluation. Initially on exam the only abnormality I could find was some tenderness over the right gluteal region. X-ray of the pelvis and hip was ordered and found to be negative. I did check her INR as she was unsure as to what her last INR was. Was found to be markedly elevated. The patient could not educate me about what her actual Coumadin dose was. I was eventually able to reach her , Jarrod Dunn. He informs me that the patient takes 3 pills on Saturday and Saturday, she had already had her dose today. The remainder of the week she takes 2 pills. I explained to the that she should not have her dose tomorrow, and they should follow-up with her primary care provider in regards to further instructions. He voiced understanding. Otherwise Tylenol as needed for pain. She has no other acute complaints or concerns. She is to return to the ED with worsening or new concerning symptoms of any sort. 04/21/20 16:15 Patient remained stable, waiting for ride. - Vital Signs Vital signs: Temp Pulse Resp BP Pulse Ox 98.5 F 04/21/20 10:43 - Laboratory Results Laboratory Results Interpreted: 04/21/20 12:29 PT 51.2 H* INR 5.78 H* Critical Laboratory Results Reviewed: No Critical Results - Radiology Results Radiology Results Interpreted: 04/21/20 15:41 Hip/Pelvis X-Ray 04/21/20 11:44 IMPRESSION: No fracture identified. Head CT 04/21/20 13:02 IMPRESSION: Chronic microvascular ischemia with no acute intracranial imaging findings. There appears to be an old posterior left frontal lobe infarction. EVIDENCE OF ACUTE STROKE: NO. Critical Radiology Results Reviewed: No Critical Results Discharge - Discharge Clinical Impression: Supratherapeutic INR Contusion, buttock Qualifiers: Encounter type: initial encounter Qualified Code(s): S30.0XXA - Contusion of lower back and pelvis, initial encounter Condition: Stable Disposition: HOME, SELF-CARE Instructions: Contusion ([facility]) Additional Instructions: Ice to the painful area over the next 24 hours. Take Tylenol as needed for severe pain. On lab work today, your INR, or your warfarin level, was found to be 5.78, which is too high. Please do not take any warfarin tomorrow. Call your primary care provider for further instructions regarding your dosing. In regards to your x-ray, no obvious fracture was noted today, but if your pain persist you may need further imaging for reevaluation. If you develop increased pain, confusion, or any other new or concerning symptoms, please return immediately to the emergency department for evaluation. Referrals: DELILAH PETERS, [Primary Care Provider] - Follow up as needed
[2020-04-21 12:54] LABS: INTERNATIONAL RATION (INR) 5.78; PROTHROMBIN TIME 51.2 SEC (11.4-15.4)
--- NOTE | 2020-04-21 13:36 | RADIOLOGY REPORT (SQ) ---
EXAM DESCRIPTION: CT HEAD WITHOUT IMAGES COMPLETED DATE/TIME: 04/21/2020 1:14 pm REASON FOR STUDY: fall, elevated INR COMPARISON: 01/29/2018 TECHNIQUE: Axial images acquired through the brain without intravenous contrast. Images reviewed wi th bone, brain and subdural windows. Additional sagittal and coronal reconstructions were generated. Images stored on PACS. All CT scanners at this facility use dose modulation, iterative reconstruction, and/or weight based d osing when appropriate to reduce radiation dose to as low as reasonably achievable (ALARA). [facility]: Dose Right [facility]: CareDose [facility]: Dose Right [facility]: Teradose 4D [facility]: Smart AG&P RADIATION DOSE: CT Rad equipment meets quality standard of care and radiation dose reduction techniq ues were employed. CTDIvol: 53.2 mGy. DLP: 1044 mGy-cm. mGy. LIMITATIONS: None. FINDINGS: VENTRICLES: Normal size and contour. CEREBRUM: No masses. No hemorrhage. No midline shift. No evidence for acute infarction. Extensive areas of low density in the white matter most likely chronic small vessel ischemic changes. Stable a gavin of encephalomalacia in the left posterior frontal lobe. CEREBELLUM: No masses. No hemorrhage. No alteration of density. No evidence for acute infarction. EXTRAAXIAL SPACES: No fluid collections. No masses. ORBITS AND GLOBE: No intra- or extraconal masses. Normal contour of globe without masses. CALVARIUM: No fracture. PARANASAL SINUSES: No fluid or mucosal thickening. SOFT TISSUES: No mass or hematoma. OTHER: No other significant finding. IMPRESSION: Chronic microvascular ischemia with no acute intracranial imaging findings. There appea rs to be an old posterior left frontal lobe infarction. EVIDENCE OF ACUTE STROKE: NO. COMMENT: Quality ID # [id number]: Final reports with documentation of one or more dose reduction techniques (e.g., Automated exposure control, adjustment of the mA and/or kV according to patient size, use of iterative reconstruction technique) TECHNICAL DOCUMENTATION: JOB ID: [id number] 2010 [employer]- All Rights Reserved Reading location - IP/workstation name: [email or web address]
--- NOTE | 2020-04-21 13:38 | RADIOLOGY REPORT (SQ) ---
EXAM DESCRIPTION: HIP RIGHT AP/LATERAL IMAGES COMPLETED DATE/TIME: 04/21/2020 1:26 pm REASON FOR STUDY: fall COMPARISON: None. NUMBER OF VIEWS: Two views. TECHNIQUE: AP pelvis and additional frog legview of the right hip. LIMITATIONS: None. FINDINGS: MINERALIZATION: Normal. RIGHT HIP: No fracture or dislocation. No worrisome bone lesions. LEFT HIP: No fracture or dislocation. No worrisome bone lesions. Limited views. PUBIS AND ISCHIUM: No fracture. PELVIS: No fracture. SACRUM: No fracture or dislocation. No worrisome bone lesions. LOWER LUMBAR SPINE: Spondylosis. SOFT TISSUES: No findings. OTHER: No other significant finding. IMPRESSION: No fracture identified. TECHNICAL DOCUMENTATION: JOB ID: [id number] 2010 [employer]- All Rights Reserved Reading location - IP/workstation name: [email or web address]
[2020-04-21 16:20] VITALS: BP 148/90
== END 2020-04-21 16:20 | disposition home or self-care (01) ==
LOC: ER 10:43
DX: S30.0XXA Contusion of lower back and pelvis, initial encounter (principal); W01.0XXA Fall on same level from slipping, tripping and stumbling without subsequent striking against object, initial encounter; R79.1 Abnormal coagulation profile; I67.82 Cerebral ischemia; I10 Essential (primary) hypertension; E11.9 Type 2 diabetes mellitus without complications; I48.91 Unspecified atrial fibrillation; Z79.01 Long term (current) use of anticoagulants; Z86.73 Personal history of transient ischemic attack (TIA), and cerebral infarction without residual deficits
CPT/HCPCS: 36415; 70450; 85610; 99285